=== PATIENT | male | born 1945 ===

== ENCOUNTER 2019-01-14 10:10 | Inpatient (IN) | payer MEDICARE, BC ==
[~2019-01-14] VITALS: Ht 188 cm; Wt 110.8 kg
[2019-01-14] MEDS ORDERED: ASPI81TA50 PO (11:29)
[2019-01-14] MEDS ORDERED: METF500T16 PO (11:29)
[2019-01-14] MEDS ORDERED: HYDR10TA PO (11:29)
[2019-01-14] MEDS ORDERED: ESCITALOPRAM OX20 MG PO (11:29)
[2019-01-14] MEDS ORDERED: LOPE2TAB27 PO (11:29)
[2019-01-14] MEDS ORDERED: MV M PO (11:29)
[2019-01-14] MEDS ORDERED: TRAZ-86 PO (11:29)
[2019-01-14] MEDS ORDERED: GLIP5TAB10 PO (11:29)
[2019-01-14] MEDS ORDERED: CEPH500T PO (11:29)
[2019-01-14] MEDS ORDERED: MUPI15CR8 TP (11:29)
[2019-01-14] MEDS ORDERED: ATOR40TA59 PO (11:29)
[2019-01-14] MEDS ORDERED: HYDR2TAB31 PO (11:29)
[2019-01-14] MEDS ORDERED: QUET25TA5 PO ×2 (11:29→14:26)
[2019-01-14 14:20] VITALS: BP 105/65
[2019-01-14] MEDS ORDERED: CLON0.5T4 PO (14:26)
[2019-01-14] MEDS ORDERED: MAG HYDROX/AL HYDROX/SIMETH 30 ML ORAL.SUSP PO PRN (14:30)
[2019-01-14] MEDS ORDERED: ACETAMINOPHEN 325 MG TABLET PO PRN (14:30)
[2019-01-14] MEDS ORDERED: MAGNESIUM HYDROXIDE 2,400 MG/30 ML ORAL.SUSP. PO PRN (14:30)
[2019-01-14] MEDS ORDERED: QUEtiapine 25 MG TABLET. PO PRN (14:30)
[2019-01-14] MEDS ORDERED: HYDROmorphone 2 MG TABLET PO PRN (14:30)
[2019-01-14] MEDS ORDERED: METHYL SALICYLATE/MENTHOL TOPICAL OINTMENT 57GM TUBE. TP PRN (14:30)
[2019-01-14 15:43] VITALS: BP 100/62
[2019-01-14] MEDS: metFORMIN 500 MG TABLET PO SCH (17:00)
[2019-01-14] MEDS: glipiZIDE 5 MG TABLET PO SCH (17:00)
[2019-01-14] MEDS: CEPHALEXIN 250 MG CAPSULE PO SCH ×2 (17:00→21:10)
[2019-01-14 19:29] LABS: BASO % 0 % (0-3); EOS % 0 % (0-3); HEMATOCRIT 31.2 % (39.0-53.0); HEMOGLOBIN 10.1 g/dL (13.0-17.5); LYMPH # 0.3 x10^3/uL (1.0-4.8); LYMPH % 4 % (24-48); MEAN CORPUSCULAR HEMOGLOBIN 30 pg (25-35); MEAN CORPUSCULAR HGB CONC 32 g/dL (31-37); MEAN CORPUSCULAR VOLUME 93 fL (79-100); MONO # 0.4 x10^3/uL (0.0-1.1); MONO % 4 % (0-9); NEUT # 8.6 x10^3uL (1.8-7.7); NEUT % 92 % (31-73); PLATELET COUNT 193 x10^3/uL (140-400); RED BLOOD COUNT 3.36 x10^6/uL (4.30-5.70); RED CELL DISTRIBUTION WIDTH 15.7 % (11.5-14.5); WHITE BLOOD COUNT 9.4 x10^3/uL (4.0-11.0)
[2019-01-14 19:43] LABS: ALBUMIN 1.9 g/dL (3.4-5.0); ALBUMIN/GLOBULIN RATIO 0.5 (1.0-1.7); CALCIUM 7.3 mg/dL (8.5-10.1); CREATININE 1.1 mg/dL (0.7-1.3); GFR 65.8; MAGNESIUM 1.2 mg/dL (1.8-2.4); TOTAL BILIRUBIN 0.5 mg/dL (0.2-1.0); TOTAL PROTEIN 5.6 g/dL (6.4-8.2)
[2019-01-14] MEDS: ATORVASTATIN CALCIUM 20 MG TABLET PO SCH (21:10)
[2019-01-14] MEDS: LOPERAMIDE 2 MG CAPSULE PO SCH (21:10)
[2019-01-14] MEDS: QUEtiapine 25 MG TABLET. PO SCH (21:10)
[2019-01-14] MEDS: traZODone 100 MG TABLET. PO SCH (21:10)
[2019-01-15] MEDS: glipiZIDE 5 MG TABLET PO SCH ×2 (08:55→17:00)
[2019-01-15] MEDS: CEPHALEXIN 250 MG CAPSULE PO SCH ×4 (08:55→20:00)
[2019-01-15] MEDS: metFORMIN 500 MG TABLET PO SCH ×2 (08:55→17:00)
[2019-01-15] MEDS: LOPERAMIDE 2 MG CAPSULE PO SCH ×2 (08:55→20:01)
[2019-01-15] MEDS: MUPIROCIN 2% TOPICAL OINTMENT 22GM TUBE. TP SCH (08:56)
[2019-01-15] MEDS: HYDROCORTISONE 10 MG TABLET PO SCH (08:56)
[2019-01-15] MEDS: ASPIRIN ENTERIC COATED 81 MG TABLET.DR. PO SCH (08:58)
[2019-01-15] MEDS: LACTOBACILLUS RHAMNOSUS GG 1 CAPSULE. PO SCH ×2 (08:58→20:01)
[2019-01-15] MEDS: clonazePAM 0.5 MG TABLET PO SCH (08:58)
[2019-01-15] MEDS: MULTIVITAMIN with MINERAL TABLET. PO SCH (08:58)
[2019-01-15] MEDS: CITALOPRAM 20 MG TABLET. PO SCH (08:59)
[2019-01-15 10:20] LABS: THYROID STIM HORMONE (TSH) 1.839 uIU/mL (0.358-3.740)
[2019-01-15 12:10] LABS: THYROXINE 5.4 ug/dL (4.5-12.0)
[2019-01-15 16:06] VITALS: BP 108/74
[2019-01-15] MEDS: traZODone 100 MG TABLET. PO SCH (20:01)
[2019-01-15] MEDS: MAGNESIUM OXIDE 400 MG TABLET PO SCH (20:01)
[2019-01-15] MEDS: ATORVASTATIN CALCIUM 20 MG TABLET PO SCH (20:01)
[2019-01-15] MEDS: QUEtiapine 25 MG TABLET. PO SCH (20:01)
--- NOTE | 2019-01-15 21:41 | PDOC ---
Exam Note: Coy Note: Please also refer to the separate dictated note~for this date of service dictated separately. Discussed the patient with Nursing staff reviewed the chart.~Reviewed interim history and current functioning. Reviewed vital signs,~Labs/ Radiology~and current medications noted below. Continue current treatment with the changes noted in the dictated addendum note Assessment: Vital Signs/I&O: Vital Signs Date Time Temp Pulse Resp B/P (MAP) Pulse Ox O2 Delivery O2 Flow Rate FiO2 01/15/19 16:06 97.0 60 18 108/74 (85) 97 I & O 01/14/19 01/14/19 01/15/19 15:00 23:00 07:00 Intake Total 240 ml 240 ml Balance 240 ml 240 ml Labs: Laboratory Tests Test 01/15/19 07:45 01/15/19 12:26 01/15/19 17:59 01/15/19 20:04 Glucose (Fingerstick) 75 mg/dL (70-99) 91 mg/dL (70-99) 119 mg/dL (70-99) H 87 mg/dL (70-99) Current Medications: Meds: Current Medications Medications (Trade) Dose Ordered Sig/Sarai Route PRN Reason Start Time Stop Time Status Last Admin Dose Admin Aspirin (Aspirin Enteric Coated) 81 mg DAILY PO 01/15/19 09:00 01/15/19 08:58 Hydrocortisone (Cortef) 15 mg DAILY PO 01/15/19 09:00 01/15/19 08:56 Citalopram Hydrobromide (CeleXA) 40 mg DAILY PO 01/15/19 09:00 01/15/19 08:59 Mupirocin (Bactroban) 1 amina DAILY TP 01/15/19 09:00 01/15/19 08:56 Multivitamins/ Calcium (Thera-M Plus) 1 tab DAILY PO 01/15/19 09:00 01/15/19 08:58 Clonazepam (KlonoPIN) 0.5 mg DAILY PO 01/15/19 09:00 01/15/19 08:58 Lactobacillus Rhamnosus (Culturelle) 1 cap BID PO 01/15/19 09:00 01/15/19 20:01 Magnesium Oxide (Magnesium Oxide) 400 mg TID PO 01/15/19 21:00 01/15/19 20:01 I have reviewed the current psychotropics carefully including drug interactions. Risk benefit ratio favors no change other than as noted in my dictated progress note. Diagnosis: Problems: (1) Anxiety disorder (2) Dementia, vascular, with depression (3) Dementia, vascular, with delusions (4) Dementia in Alzheimer's disease with depression (5) Dementia in Alzheimer's disease with delusions (6) Impulse control disorder SERGIO GRISSOM MD Jan 15, 2019 21:41
[2019-01-16 03:06] LABS: HEMOGLOBIN A1C 5.4 % (4.8-5.6)
[2019-01-16 05:49] VITALS: BP 113/61
[2019-01-16] MEDS: metFORMIN 500 MG TABLET PO SCH (08:11)
[2019-01-16] MEDS: CITALOPRAM 20 MG TABLET. PO SCH (08:11)
[2019-01-16] MEDS: ASPIRIN ENTERIC COATED 81 MG TABLET.DR. PO SCH (08:11)
[2019-01-16] MEDS: glipiZIDE 5 MG TABLET PO SCH (08:11)
[2019-01-16] MEDS: MULTIVITAMIN with MINERAL TABLET. PO SCH (08:12)
[2019-01-16] MEDS: CEPHALEXIN 250 MG CAPSULE PO SCH ×2 (08:12→13:00)
[2019-01-16] MEDS: MAGNESIUM OXIDE 400 MG TABLET PO SCH ×2 (08:12→14:00)
[2019-01-16] MEDS: LACTOBACILLUS RHAMNOSUS GG 1 CAPSULE. PO SCH (08:12)
[2019-01-16] MEDS: LOPERAMIDE 2 MG CAPSULE PO SCH (08:12)
[2019-01-16] MEDS: HYDROCORTISONE 10 MG TABLET PO SCH (08:12)
[2019-01-16] MEDS: clonazePAM 0.5 MG TABLET PO SCH (08:15)
[2019-01-16] MEDS: MUPIROCIN 2% TOPICAL OINTMENT 22GM TUBE. TP SCH (09:00)
--- NOTE | 2019-01-16 11:02 | HP ---
ADMIT DATE: 01/14/2019 PSYCHIATRIC ADMISSION HISTORY/EVALUATION This late entry 01/14/2019 covers the elements not covered in my initial note. I met with the patient in the evening of 01/16/2019 shortly after he arrived on the unit. IDENTIFYING DATA: The patient came from the [facility] referred by Dr. Braden Mckeon, his primary care physician. On account of refusing medications, throwing medications, combative with cares, yelling out, agitated, tearful, depressed, having significant weight loss, refusing to eat. He had been on the Inpatient Unit at [facility] since 01/11/2019 prior to which he was living at home and home healthcare was providing services for him. He was being combative with cares, resistive to cares, yelling at all times, has a history of dementia with progressive worsening, agitated, and weepy. The yelling was almost consistent and persistent. He had failed outpatient psychiatric interventions with his neurologist, Dr. Neri Murphy and primary care physician, Dr. Braden Mckeon. Changes had been attempted in his psychotropics, Klonopin added for anxiety. He had a psychiatric consultation at [facility] with a recommendation of inpatient psychiatric stabilization on the Geriatric Psychiatry Unit. The patient has a history of vascular dementia and urinary tract infection. Rest medical diagnosis as noted below. CHIEF COMPLAINT: "I just came here a few hours back." This was accurate. HISTORY OF PRESENT ILLNESS: The patient has a history of dementia, vascular and worsening symptoms of depression. He has appeared hopeless, helpless, worthless, agitated, paranoid, and psychotic with sleep and appetite changes as noted. PAST PSYCHIATRIC HISTORY: As above. MEDICAL HISTORY: Gastric bypass in 2011, type 2 diabetes mellitus, hypertension, hyperlipidemia, adrenal insufficiency, coronary artery bypass graft, coronary artery disease, hemicolectomy in 2000 due to cancer, testicular cancer at 63, corneal transplant, anemia, peripheral vascular disease. Per nursing report, he has wounds and abrasions all over his body. Accu-Cheks, before meals and at bedtime. DIET: ADA. CODE STATUS: Full code. ALLERGIES: CODEINE, HYDROCODONE, OXYCODONE. Meds crushed in vanilla pudding, ambulates in wheelchair. UA was positive at [facility], treated on Keflex for 3 days. CURRENT PSYCHOTROPICS: Seroquel 25 mg q. 6 hours p.r.n. psychosis, agitation, Lexapro 20 mg a day, trazodone 100 mg at bedtime, Klonopin 0.5 mg daily, Seroquel 25 mg at bedtime. FAMILY HISTORY: Noncontributory. SOCIAL HISTORY: No history of alcohol, drug abuse, physical, sexual, or elder abuse. He is not known to be a perpetrator. REACTION TO HOSPITALIZATION: The patient accepting of it. ASSETS: Supportive family. He ambulates in a wheelchair. MENTAL STATUS EXAMINATION: The patient was seen individually shortly after he arrived on the unit. He is oriented to himself and situation, unaware of the year, president. Insight, judgment, recent and remote memory, attention, concentration, fund of knowledge poor, consistent with his diagnosis. IMPRESSION: Major neurocognitive disorder, probably vascular with delusion, depression, behavioral disturbance, major depressive disorder; anxiety disorder, unspecified; impulse control disorder, status post urinary tract infection. Rest as above. PLAN: Admit to Geropsychiat[facility] Unit at [facility]. I will see the patient daily individually from a psychiatric standpoint. Medical followup with Dr. Del Rosario. Continue the patient on his current psychotropics. Observe baseline, get records from [facility]. Make further adjustments as clinically indicated. ESTIMATED LENGTH OF STAY: 10-12 days. DISPOSITION: Plan back to home with home health services or perhaps he may need alf placement. MAN Brian GRISSOM MD DR: KANDY/vijaya JOB#: [id number] / [id number]
--- NOTE | 2019-01-16 13:02 | CONS ---
DATE OF CONSULTATION: 01/15/2019 REASON FOR CONSULTATION: Medical management. HISTORY OF PRESENT ILLNESS: The patient is a 73-year-old male patient who was [facility] on account of refusing medication, throwing medication, combative with cares, yelling out, agitated and tearful, all this with major neurocognitive disorder, vascular dementia. He is here for inpatient psychiatric stabilization. Medically, the patient has numerous medical problems including type 2 diabetes mellitus, hypertension, hyperlipidemia, renal insufficiency, coronary artery disease, anemia, and peripheral vascular disease. He also has a history of testicular cancer and colon cancer. PAST SURGICAL HISTORY: Significant for gastric bypass surgery, coronary artery bypass surgery, hemicolectomy, corneal transplant. PAST PSYCHIATRIC HISTORY: Significant for dementia. ALLERGIES: He is allergic to CODEINE, HYDROCODONE and OXYCODONE. MEDICATIONS: He is currently on following medications: He is on cephalexin 500 mg 4 times a day for UTI, atorvastatin calcium 60 mg at bedtime, aspirin 81 mg once a day, hydromorphone 2 mg every 4 hours as needed, clonazepam 0.5 mg daily, escitalopram oxalate 20 mg once a day, trazodone 100 mg at bedtime. Quetiapine fumarate 25 mg every 6 hours and quetiapine fumarate 25 mg at bedtime scheduled. Loperamide 2 mg twice a day, hydrocortisone 50 mg daily, metformin 500 mg twice a day with meals, glipizide 5 mg twice a day, Bactroban ointment applied topically daily to skin lesions. He has multivitamin with minerals 1 capsule once a day. FAMILY HISTORY: Noncontributory. SOCIAL HISTORY: He lives with his . He does not smoke or drink alcohol. PHYSICAL EXAMINATION: GENERAL: When I examined him, the patient looked pale, extremely cachectic, but no jaundice, cyanosis or thyromegaly. No jugular venous distention. No limb edema. VITAL SIGNS: Her heart rate was 60, blood pressure was 108/74, temperature was 97, respiratory rate was 18 and oxygen saturation was 97% on room air. HEAD, EYES, EARS, NOSE AND THROAT: Showed normocephalic, atraumatic. NECK: Supple. HEART: Showed normal first and second heart sounds. No gallop or murmur. CHEST: Clear to auscultation. No crepitation or rhonchi. ABDOMEN: Scaphoid, soft, nontender. NEUROLOGIC: He was awake, alert, responding appropriately. He has some form of ____. EXTREMITIES: He moves his upper extremities to a slightly greater extent than his lower extremities. He is mostly bedbound, chair bound. He has a Mu lift. He is practically quadriplegic. He has multiple skin lesions on different parts of the body on his back, his neck, around the gluteal area and both lower extremities. LABORATORY DATA: His lab work showed a white cell count 9400, hemoglobin 10, hematocrit 31, MCV 93 and platelet count of 193,000 with normal manual differential. His chemistry showed serum sodium of 141, potassium 4, chloride 102, bicarbonate 29, anion gap of 10, BUN 9, creatinine 1.1. Estimated GFR was 66 mL per minute, his glucose 170, calcium was 7.3, magnesium was 1.2. His total bilirubin was normal at 0.5. AST was slightly elevated. ALT and alkaline phosphatase were normal. Total protein was 5.6, albumin was 1.9. Serum triglycerides were 77, total cholesterol was 103, LDL cholesterol 39, VLDL was 15, HDL was 49, the ratio was 2. His TSH, total T4 and total T3 are within normal range. His serum iron, TIBC and iron saturation are consistent with anemia of chronic disease. In summary, this is a 73-year-old male patient who was admitted on account of refusing medication, throwing medication, combative with cares, yelling out, agitated and tearful, all this in a background of major neurocognitive disorder with vascular dementia. He has a multitude of medical problems including type 2 diabetes, hypertension, hyperlipidemia, coronary artery disease, adrenal insufficiency, anemia, and peripheral vascular disease. His lab work showed that he has severe hypomagnesemia with serum magnesium was only 1.2. Severe protein-calorie malnutrition, his serum albumin is only 1.9 mg/dL. He has normochromic normocytic anemia. The patient has functional quadriplegia. He has a Mu lift. He is extremely cachectic. His body mass index only 21 kilograms square meter. Multiple skin lesions. My plan is to replenish his magnesium, otherwise from a medical point of view ____ to be stable. In fact, his serum sodium is normal, potassium is 4, seems to be replenish adequately from the steroid point of view. I will follow all his lab works that are still pending at the time of this dictation and make any necessary recommendation. Thank you, Dr. Miller for allowing me to participate in the care of this patient. JENSEN LUCAS MD DR: HEATHER/vijaya JOB#: [id number] / [id number]
[2019-01-16] MEDS ORDERED: ACET325T21 PO (14:49)
[2019-01-16] MEDS ORDERED: CITA40TA12 PO (14:49)
[2019-01-16] MEDS ORDERED: LACT1CAP19 PO (14:50)
[2019-01-16] MEDS ORDERED: MAG-95 PO (14:51)
[2019-01-16] MEDS ORDERED: MAGN2400 PO (14:52)
[2019-01-16] MEDS ORDERED: METH28OI2 TOP (14:53)
--- NOTE | 2019-01-16 20:20 | PDOC ---
Exam Note: Coy Note: Please also refer to the separate dictated note~for this date of service dictated separately.~Patient seen individually. Discussed the patient with Nursing staff reviewed the chart.~Reviewed interim history and current functioning. Reviewed vital signs,~Labs/ Radiology~and current medications noted below. Continue current treatment with the changes noted in the dictated addendum note Assessment: Vital Signs/I&O: Vital Signs Date Time Temp Pulse Resp B/P (MAP) Pulse Ox O2 Delivery O2 Flow Rate FiO2 01/16/19 05:49 97.5 65 18 113/61 (78) 90 I & O 01/15/19 01/15/19 01/16/19 14:59 22:59 06:59 Intake Total 480 ml 340 ml Balance 480 ml 340 ml Labs: Laboratory Tests Test 01/15/19 21:40 01/16/19 08:02 Clostridioides difficile Toxin B Gene Positive (Negative) *A Glucose (Fingerstick) 78 mg/dL (70-99) Current Medications: Meds: Current Medications Medications (Trade) Dose Ordered Sig/Sarai Route PRN Reason Start Time Stop Time Status Last Admin Dose Admin Magnesium Oxide (Magnesium Oxide) 400 mg TID PO 01/15/19 21:00 01/16/19 16:15 DC 01/16/19 08:12 I have reviewed the current psychotropics carefully including drug interactions. Risk benefit ratio favors no change other than as noted in my dictated progress note. Diagnosis: Problems: (1) Anxiety disorder (2) Dementia, vascular, with depression (3) Dementia, vascular, with delusions (4) Dementia in Alzheimer's disease with depression (5) Dementia in Alzheimer's disease with delusions (6) Impulse control disorder SERGIO GRISSOM MD Jan 16, 2019 20:20
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
--- NOTE | 2019-01-16 23:05 | EKG ---
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
--- NOTE | 2019-01-17 19:30 | DS ---
DATE OF DISCHARGE: 01/16/2019 PSYCHIATRIC PROGRESS NOTE This late entry 01/16/2019 covers elements not covered in my initial note. REASON FOR ADMISSION: Please refer to the admission history for details. Briefly, the patient is a 73-year-old male referred to us from [facility] on account of worsening confusion, agitation, refusing medications, throwing his medications, combative with cares, yelling out, agitated, tearful. He has a history of dementia, Alzheimer's vascular, had failed outpatient psychiatric interventions, referred to inpatient psychiatric stabilization on account of his disruptive, dangerous behaviors unmanageable at a lower level of care. SIGNIFICANT FINDINGS AND CLINICAL COURSE: Following admission, the patient was seen daily individually during this brief hospitalization by myself, medical followup with Dr. Del Rosario. The patient was quite confused. Albumin was low. He has multiple sores. There was a question whether he would be a candidate for hospice care. He was kicking staff, making derogatory statements to staff, grabbed an aide by the breast, quite difficult to control. We were evaluating him baseline and at the time of discharge to the [address] [place] [address] Medical/Surgical floor consequent to Clostridium difficile he was being treated on Seroquel 25 mg q.6 hours p.r.n., Celexa 40 mg a day, trazodone 100 mg at bedtime, Klonopin 0.5 mg daily and Seroquel 25 mg at bedtime. He was previously on Lexapro, which was auto substituted to the Celexa. Prior to discharge on 01/16/2019, ambulation impaired, in wheelchair. No CV, , pulmonary, eye system symptoms on review. He did have a UTI and was on Keflex from [facility]. MENTAL STATUS EXAM: Oriented to himself. Insight, judgment, recent and remote memory, attention, concentration, fund of knowledge poor, consistent with his diagnosis. FINAL DIAGNOSES: Major neurocognitive disorder, Alzheimer, vascular with delusion, depression, behavioral disturbance; anxiety disorder, unspecified; impulse control disorder, unspecified; Clostridium difficile colitis, multiple bruises, urinary tract infection. Rest unchanged from admission. DISCHARGE MEDICATIONS: Please refer to the MRAD. Psychiatric followup on [address] [place] [address]. Medical followup with Dr. Del Rosario. Time for discharge day management greater than 30 minutes. MAN Brian GRISSOM MD DR: Tanvi JOB#: [id number] / [id number]
== END 2019-01-16 16:14 | disposition short-term general hospital (02) | DRG 885 ==
LOC: GEROPSY 13:56
PROVIDERS: ADMIT Psychiatry & Neurology Psychiatry; ATTEND Psychiatry & Neurology Psychiatry
DX: F32.3 Major depressive disorder, single episode, severe with psychotic features (principal); E43 Unspecified severe protein-calorie malnutrition; F01.51 Vascular dementia, unspecified severity, with behavioral disturbance; I25.810 Atherosclerosis of coronary artery bypass graft(s) without angina pectoris; A04.72 Enterocolitis due to Clostridium difficile, not specified as recurrent; E27.40 Unspecified adrenocortical insufficiency; N39.0 Urinary tract infection, site not specified; F02.81 Dementia in other diseases classified elsewhere, unspecified severity, with behavioral disturbance; E11.9 Type 2 diabetes mellitus without complications; F41.9 Anxiety disorder, unspecified; F63.9 Impulse disorder, unspecified; G30.9 Alzheimer's disease, unspecified; I10 Essential (primary) hypertension; D64.9 Anemia, unspecified; E78.5 Hyperlipidemia, unspecified; I25.10 Atherosclerotic heart disease of native coronary artery without angina pectoris; Z85.038 Personal history of other malignant neoplasm of large intestine; Z85.47 Personal history of malignant neoplasm of testis; Z95.1 Presence of aortocoronary bypass graft; Z98.84 Bariatric surgery status; Z79.899 Other long term (current) drug therapy; Z88.8 Allergy status to other drugs, medicaments and biological substances
CPT/HCPCS: 36415; 80053; 80061; 82306; 82607; 82947; 83036; 83540; 83550; 83735; 84436; 84443; 84480; 85025; 86592; 87493; 93005

== ENCOUNTER 2019-01-16 15:55 | Inpatient (IN) | payer MEDICARE, BC ==
[~2019-01-16] VITALS: Ht 182.9 cm; Wt 81.4 kg
[~2019-01-16 15:55] MED LIST: ACET325T21 PO; ASPI81TA50 PO; ATOR40TA59 PO; CEPH500T PO; CITA40TA12 PO; CLON0.5T4 PO; ESCITALOPRAM OX20 MG PO; GLIP5TAB10 PO; HYDR10TA PO; HYDR2TAB31 PO; LACT1CAP19 PO; LOPE2TAB27 PO; MAG-95 PO; MAGN2400 PO; METF500T16 PO; METH28OI2 TOP; MUPI15CR8 TP; MV M PO; QUET25TA5 PO; TRAZ-125 PO
[2019-01-16] MEDS ORDERED: QUEtiapine 25 MG TABLET. PO PRN (16:45)
[2019-01-16] MEDS ORDERED: ACETAMINOPHEN 325 MG TABLET PO PRN (16:45)
[2019-01-16 16:56] VITALS: BP 129/70
[2019-01-16] MEDS ORDERED: METHYL SALICYLATE/MENTHOL TOPICAL OINTMENT 57GM TUBE. TP PRN (17:00)
[2019-01-16 17:10] LABS: HEMATOCRIT 30.9 % (39.0-53.0); RED BLOOD COUNT 3.35 x10^6/uL (4.30-5.70); RED CELL DISTRIBUTION WIDTH 16.1 % (11.5-14.5); WHITE BLOOD COUNT 6.3 x10^3/uL (4.0-11.0)
[2019-01-16 17:23] LABS: ALBUMIN 1.8 g/dL (3.4-5.0); ALBUMIN/GLOBULIN RATIO 0.5 (1.0-1.7); CALCIUM 7.4 mg/dL (8.5-10.1); CREATININE 0.9 mg/dL (0.7-1.3); GFR 82.9; MAGNESIUM 1.3 mg/dL (1.8-2.4); POTASSIUM 3.6 mmol/L (3.5-5.1); TOTAL BILIRUBIN 0.4 mg/dL (0.2-1.0); TOTAL PROTEIN 5.3 g/dL (6.4-8.2)
--- NOTE | 2019-01-16 17:27 | NUR ---
NURSING NOTE ADMIT PT ADMIT TO ROOM 105 FROM [facility] FOR DX OF CDIFF. REPORT FROM [facility]. PT HAS WOUNDS ON COCCYX AND BACK PHOTOGRAPHED IN CHART. PT HAS VARIOUS BRUISING AND SCRATCHES THROUGHOUT AT DIFFERENT STAGES OF HEALING. PT HAS BEEN COMBATIVE UPON ARRIVAL. UNABLE TO ASSESS HEART AND LUNG SOUNDS AT THIS TIME. PT SETTLED IN ROOM. DR LUCAS REVIEWED PT AND PLAN. WILL CONTINUE TO MONITOR. [facility] ALTAMIRANO.
[2019-01-16] MEDS: glipiZIDE 5 MG TABLET PO SCH (17:51)
[2019-01-16] MEDS: CEPHALEXIN 250 MG CAPSULE PO SCH ×2 (17:52→20:46)
[2019-01-16] MEDS: VANCOMYCIN 125 MG/2.5 ML ORAL SOLUTION. PO SCH ×2 (18:32→20:47)
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
[2019-01-16 20:25] VITALS: BP 133/78
[2019-01-16] MEDS: LACTOBACILLUS RHAMNOSUS GG 1 CAPSULE. PO SCH (20:46)
[2019-01-16] MEDS: traZODone 100 MG TABLET. PO SCH (20:46)
[2019-01-16] MEDS: QUEtiapine 25 MG TABLET. PO SCH (20:46)
[2019-01-16] MEDS: ATORVASTATIN CALCIUM 20 MG TABLET PO SCH (20:46)
[2019-01-16] MEDS: LOPERAMIDE 2 MG CAPSULE PO SCH (20:46)
[2019-01-16] MEDS: MAGNESIUM OXIDE 400 MG TABLET PO SCH (20:47)
[2019-01-16 22:55] VITALS: BP 123/60
[2019-01-17 05:22] VITALS: BP 124/71
--- NOTE | 2019-01-17 07:00 | NUR ---
Wound Care Wound care consult for buttock and back wound. Pt has reddened abrasion with open area at top of abrasion, cleansed wound and applied hydrocolloid and foam dressing. Recommend to change every 2-3 days. Pt has stage III to buttock, applied A&D ointment due to incontinence. Pt needs P500 bed and heel medix boots. Discussed POC with RN. No other wounds noted at this time. WC will continue to follow for possible changes.
[2019-01-17] MEDS: LOPERAMIDE 2 MG CAPSULE PO SCH ×2 (07:44→21:00)
[2019-01-17] MEDS: clonazePAM 0.5 MG TABLET PO SCH (07:44)
[2019-01-17] MEDS: CITALOPRAM 20 MG TABLET. PO SCH (07:44)
[2019-01-17] MEDS: LACTOBACILLUS RHAMNOSUS GG 1 CAPSULE. PO SCH ×2 (07:44→22:31)
[2019-01-17] MEDS: CEPHALEXIN 250 MG CAPSULE PO SCH ×4 (07:44→22:31)
[2019-01-17] MEDS: MAGNESIUM OXIDE 400 MG TABLET PO SCH ×2 (07:45→22:31)
[2019-01-17] MEDS: glipiZIDE 5 MG TABLET PO SCH ×2 (07:45→16:49)
[2019-01-17] MEDS: ASPIRIN ENTERIC COATED 81 MG TABLET.DR. PO SCH (07:45)
[2019-01-17] MEDS: MULTIVITAMIN with MINERAL TABLET. PO SCH (07:45)
[2019-01-17] MEDS: VANCOMYCIN 125 MG/2.5 ML ORAL SOLUTION. PO SCH ×4 (07:45→22:31)
[2019-01-17] MEDS: HYDROCORTISONE 10 MG TABLET PO SCH (07:48)
[2019-01-17] MEDS: MUPIROCIN 2% TOPICAL OINTMENT 22GM TUBE. TP SCH (09:00)
--- NOTE | 2019-01-17 11:17 | NUR ---
IP: patient tests + for c diff, requires contact + precautions.
[2019-01-17 11:20] VITALS: BP 91/52
[2019-01-17] MEDS ORDERED: IV NORMAL SALINE 1,000ML 1,000 ML IV SCH (11:30)
[2019-01-17] MEDS ORDERED: MAGNESIUM SULFATE 2GM 50 ML IV ONE (11:30)
[2019-01-17] MEDS: IV NORMAL SALINE 1,000ML 1,000 ML IV SCH (11:33)
--- NOTE | 2019-01-17 11:56 | PN ---
DATE: 01/17/2019 SUBJECTIVE: The patient was transferred yesterday from [facility] on account of having diarrhea and was tested positive for Clostridium difficile toxins. He is in isolation. According to nursing staff, he did not have any bowel movement today. We did start him yesterday on vancomycin 125 mg 4 times a day. He has been more cooperative and compliant with care and medication. Yesterday, he was extremely combative. PHYSICAL EXAMINATION: GENERAL: When I examined him today, he looked pale, but no jaundice, cyanosis or thyromegaly. No jugular venous distention. No limb edema. VITAL SIGNS: His heart rate was 87, blood pressure was 124/71, temperature was 97.7, respiratory rate was 18 and oxygen saturation was 96% on room air. HEAD, EYES, EARS, NOSE AND THROAT: Showed normocephalic, atraumatic. NECK: Supple. HEART: Showed normal first and second heart sounds. No gallop, rub or murmur. CHEST: Clear to auscultation. No crepitation or rhonchi. ABDOMEN: Scaphoid, soft, nontender. No guarding or rigidity. No organomegaly. All hernial orifice intact. Bowel sounds normal. NEUROLOGIC: He was awake, alert, responding appropriately. He is able to move his upper extremities; however, he has functional paraplegia and he is mostly bedbound, chair bound. He has a Mu lift. His intake was 320 and no output was recorded. LABORATORY DATA: His lab work as of yesterday showed a serum sodium 140, potassium 3.6, chloride 105, bicarbonate 29, anion gap of 6, BUN 7, creatinine was 0.9, estimated GFR was 83 mL per minute. His glucose was 130, calcium was 7.4, magnesium was 1.3. Total bilirubin, AST, ALT, alkaline phosphatase were normal. Total protein was 5.3, albumin was 1.8. His white cell count was 6300, hemoglobin 10, hematocrit 30, MCV 92, and platelet count 220,000. ASSESSMENT: 1. Recurrent episode of loose bowel movement tested positive for Clostridium difficile toxin. 2. Other medical problems include type 2 diabetes mellitus. 3. Hypertension. 4. Hyperlipidemia. 5. Chronic renal insufficiency. 6. Coronary artery disease. 7. Anemia. 8. Peripheral vascular disease. 9. History of testicular and colon cancer. 10. Severe protein-calorie malnutrition with serum albumin was only 1.8 g/dL. 11. Severe hypomagnesemia with serum magnesium is only 1.3. PLAN: To continue obviously with vancomycin and all other medications continue with. I will replenish his magnesium and order was brought for magnesium sulfate 2 grams IV and continue with magnesium oxide. Continue with vancomycin 125 mg 4 times a day for C. diff colitis. We will start him on SCDs for DVT prophylaxis as he is mostly bedbound, chair bound and we will also consult Dr. Miller to follow the patient and adjust his psychotropic medication. JENSEN LUCAS MD DR: HEATHER/vijaya JOB#: [id number] / [id number]
--- NOTE | 2019-01-17 13:45 | NUR ---
LIGIA met with pt and pt to discuss the potential for a Hospice referral as pt labs are not well. Pt , in previous conversations, mentioned that they did a hospice consult and was told pt did not meet the criteria. LIGIA would like to send a referral for reconsideration and received permission from pt . Pt reports that the nurse is Terry, but could not remember the lady's name that did the hospice consult. LIGIA will plan to contact them and see what could be done. LIGIA also let pt know that pt would not be in treatment team as pt is on the medical floor and not on [facility]. Addendum: 01/18/19 at 1029 by ALLY STRONG The timing on this note is incorrect. LIGIA met with pt at 1400 after finding out she was in pt room on .
--- NOTE | 2019-01-17 13:47 | NUR ---
SW left a message with pt to contact SW re: the potential to have Hospice come out and assess pt for care. SW will attempt to contact pt , Lisa, back at a later date.
[2019-01-17 16:46] VITALS: BP 112/65
[2019-01-17 19:10] VITALS: BP 103/60
--- NOTE | 2019-01-17 20:45 | PDOC ---
Exam Note: Coy Note: Please also refer to the separate dictated note~for this date of service dictated separately.~Patient seen individually. Discussed the patient with Nursing staff reviewed the chart.~Reviewed interim history and current functioning. Reviewed vital signs,~Labs/ Radiology~and current medications noted below. Continue current treatment with the changes noted in the dictated addendum note Assessment: Vital Signs/I&O: Vital Signs Date Time Temp Pulse Resp B/P (MAP) Pulse Ox O2 Delivery O2 Flow Rate FiO2 01/17/19 20:20 Room Air 01/17/19 19:10 97.8 80 20 103/60 (74) 100 I & O 01/16/19 01/16/19 01/17/19 15:00 23:00 07:00 Intake Total 240 ml 80 ml Balance 240 ml 80 ml Current Medications: Meds: Current Medications Medications (Trade) Dose Ordered Sig/Sarai Route PRN Reason Start Time Stop Time Status Last Admin Dose Admin Aspirin (Aspirin Enteric Coated) 81 mg DAILY PO 01/17/19 09:00 01/17/19 07:45 Clonazepam (KlonoPIN) 0.5 mg DAILY PO 01/17/19 09:00 01/17/19 07:44 Hydrocortisone (Cortef) 15 mg DAILY PO 01/17/19 09:00 01/17/19 07:48 Lactobacillus Rhamnosus (Culturelle) 1 cap BID PO 01/16/19 21:00 01/17/19 07:44 Quetiapine Fumarate (SEROquel) 25 mg HS PO 01/16/19 21:00 01/16/19 20:46 Trazodone HCl (Desyrel) 100 mg HS PO 01/16/19 21:00 01/16/19 20:46 Atorvastatin Calcium (Lipitor) 60 mg QHS PO 01/16/19 21:00 01/16/19 20:46 Citalopram Hydrobromide (CeleXA) 40 mg DAILY PO 01/17/19 09:00 01/17/19 07:44 Loperamide HCl (Imodium) 2 mg BID PO 01/16/19 21:00 01/17/19 07:44 Multivitamins/ Calcium (Thera-M Plus) 1 tab DAILY PO 01/17/19 09:00 01/17/19 07:45 Magnesium Oxide (Magnesium Oxide) 400 mg BID PO 01/16/19 21:00 01/18/19 09:01 01/17/19 07:45 Magnesium Sulfate 50 ml @ 25 mls/hr 1X ONCE IV 01/17/19 11:30 01/17/19 13:29 DC 01/17/19 11:33 Sodium Chloride 1,000 ml @ 75 mls/hr [id number] IV 01/17/19 11:30 01/17/19 11:33 I have reviewed the current psychotropics carefully including drug interactions. Risk benefit ratio favors no change other than as noted in my dictated progress note. Diagnosis: Problems: (1) Anxiety disorder (2) Dementia, vascular, with depression (3) Dementia, vascular, with delusions (4) Dementia in Alzheimer's disease with depression (5) Dementia in Alzheimer's disease with delusions (6) Impulse control disorder SERGIO GRISSOM MD Jan 17, 2019 20:45
[2019-01-17] MEDS: QUEtiapine 25 MG TABLET. PO SCH (22:31)
[2019-01-17] MEDS: traZODone 100 MG TABLET. PO SCH (22:31)
[2019-01-17] MEDS: ATORVASTATIN CALCIUM 20 MG TABLET PO SCH (22:31)
[2019-01-17 23:59] VITALS: BP 106/64
[2019-01-18] MEDS: IV NORMAL SALINE 1,000ML 1,000 ML IV SCH ×2 (01:23→14:01)
[2019-01-18] MEDS: VANCOMYCIN 125 MG/2.5 ML ORAL SOLUTION. PO SCH ×4 (08:10→22:03)
[2019-01-18] MEDS: MULTIVITAMIN with MINERAL TABLET. PO SCH (08:10)
[2019-01-18] MEDS: LACTOBACILLUS RHAMNOSUS GG 1 CAPSULE. PO SCH ×2 (08:10→22:04)
[2019-01-18] MEDS: LOPERAMIDE 2 MG CAPSULE PO SCH ×2 (08:11→21:00)
[2019-01-18] MEDS: glipiZIDE 5 MG TABLET PO SCH ×2 (08:11→17:54)
[2019-01-18] MEDS: ASPIRIN ENTERIC COATED 81 MG TABLET.DR. PO SCH (08:11)
[2019-01-18] MEDS: clonazePAM 0.5 MG TABLET PO SCH (08:11)
[2019-01-18] MEDS: CEPHALEXIN 250 MG CAPSULE PO SCH ×4 (08:11→22:04)
[2019-01-18] MEDS: MAGNESIUM OXIDE 400 MG TABLET PO SCH (08:11)
[2019-01-18] MEDS: CITALOPRAM 20 MG TABLET. PO SCH (08:12)
[2019-01-18] MEDS: HYDROCORTISONE 10 MG TABLET PO SCH (08:12)
[2019-01-18] MEDS: MUPIROCIN 2% TOPICAL OINTMENT 22GM TUBE. TP SCH (09:00)
[2019-01-18 09:14] LABS: CALCIUM 7.5 mg/dL (8.5-10.1); CREATININE 0.7 mg/dL (0.7-1.3); GFR 110.9; MAGNESIUM 1.6 mg/dL (1.8-2.4); POTASSIUM 3.5 mmol/L (3.5-5.1)
--- NOTE | 2019-01-18 10:10 | NUR ---
LIGIA spoke with Neeta through [facility], who did the initial consult for pt services. She reported at that time, pt did not meet criteria and she highly doubted that pt would now based off Medicare regulations. SW understood that pt still talked and had some movement ability; however, based off pt labs, his albumin is low and he may qualify. LIGIA was encouraged to send records over to the office and she will have the director look to see if he meets the criteria for this.
[2019-01-18 10:57] VITALS: BP 103/52
[2019-01-18] MEDS: HYDROmorphone 2 MG TABLET PO PRN (14:13)
[2019-01-18 15:30] VITALS: BP 96/51
--- NOTE | 2019-01-18 15:45 | PN ---
DATE: 01/17/2019 This late entry 01/17 covers elements not covered in my initial note. SUBJECTIVE: I met with the patient evening of 01/17 in room 105, [address] [place] [address], [facility], for a psychiatric consult/followup requested by Dr. Del Rosario after the patient was transferred from the [facility] from under my care to [address] [place] [address] Medical/Surgical floor after he developed C. diff colitis on the Geriatric Psychiatry Unit. While on [address] [place] [address], he has had episodes of irritability, mood lability more so during cares, less so at other times and I have been asked to consult to follow him from a psychiatric standpoint. Information from initial evaluation and assessments from the [facility] will not be repeated here. Per nursing staff, the patient is doing better, but gets irritable with cares. Sleep and appetite are fair. He remains confused. REVIEW OF SYSTEMS: Ambulation impaired. No CV, , pulmonary, eye system symptoms on review. Reliability poor. MENTAL STATUS EXAM: Oriented to himself. Insight, judgment, recent and remote memory, attention, concentration, fund of knowledge poor consistent with his diagnosis. LABORATORY DATA: Reviewed. IMPRESSION: Major neurocognitive disorder, Alzheimer, vascular with delusion, depression, behavioral disturbance; anxiety disorder, unspecified; impulse control disorder, unspecified. Rest unchanged. PLAN: Start Zyprexa Zydis 2.5 mg q. 2 hours p.r.n. psychosis, agitation, max 10 mg in 24 hours, specifically during cares to help with irritability, mood lability. Rest unchanged for now. MAN Brian GRISSOM MD DR: KANDY/vijaya JOB#: [id number] / [id number]
[2019-01-18 18:54] VITALS: BP 88/51
--- NOTE | 2019-01-18 19:34 | PN ---
DATE: 01/18/2019 SUBJECTIVE: The patient is resting, slightly propped up in bed, in no apparent distress. On questioning him, he denied any complaint. He apparently has one small bowel movement. PHYSICAL EXAMINATION: GENERAL: When I examined him, he looked pale, cachectic, but no jaundice, cyanosis or thyromegaly. No jugular venous distension. No lower limb edema. VITAL SIGNS: His heart rate was 75, blood pressure was 103/57, temperature was 98.6, respiratory rate 20, and oxygen saturation was 96% on room air. HEAD, EYES, EARS, NOSE AND THROAT: Showed normocephalic, atraumatic. NECK: Supple. HEART: Showed normal first and second heart sounds. No gallop or murmur. CHEST: Clear to auscultation. No crepitation or rhonchi. ABDOMEN: Scaphoid, soft, nontender. NEUROLOGIC: He was awake, alert, responding appropriately. All cranial nerves are intact. He moves upper extremities without difficulty, has functional paraplegia. He is mostly bedbound, chair bound. He has a Mu lift. His intake over the last 24 hours was 1500, no output was recorded. LABORATORY DATA: His lab work this morning showed a serum sodium 141, potassium 3.5, chloride 106, bicarbonate 30, anion gap of 5, BUN 4, creatinine 0.7, estimated GFR was 110 mL per minute, his glucose 113, calcium was 7.5, magnesium was 1.6. ASSESSMENT: 1. Recurrent episodes of loose bowel movement, tested positive Clostridium difficile toxin for which he is now on oral vancomycin. 2. Type 2 diabetes mellitus. 3. Hypertension. 4. Hyperlipidemia. 5. Chronic renal insufficiency. 6. Coronary artery disease. 7. Anemia. 8. Peripheral vascular disease. 9. History of testicular and colon cancer. 10. Severe protein-calorie malnutrition, serum albumin is only 1.8 mg/dL. 11. Severe hypomagnesemia with serum magnesium is only 1.3 g/dL. PLAN: To continue with vancomycin and all other medication. Continue with magnesium supplement. Continue with DVT prophylaxis with SCD. Given the multitude of medical problems, he has hospice comfort and hospice care is very appropriate for him. JENSEN LUCAS MD DR: HEATHER/vijaya JOB#: [id number] / [id number]
--- NOTE | 2019-01-18 20:33 | PDOC ---
Exam Note: Coy Note: Please also refer to the separate dictated note~for this date of service dictated separately.~Patient seen individually. Discussed the patient with Nursing staff reviewed the chart.~Reviewed interim history and current functioning. Reviewed vital signs,~Labs/ Radiology~and current medications noted below. Continue current treatment with the changes noted in the dictated addendum note Assessment: Vital Signs/I&O: Vital Signs Date Time Temp Pulse Resp B/P (MAP) Pulse Ox O2 Delivery O2 Flow Rate FiO2 01/18/19 18:54 98.0 66 20 88/51 (63) 95 Room Air I & O 01/17/19 01/17/19 01/18/19 15:00 23:00 07:00 Intake Total 200 ml 360 ml 980.41 ml Balance 200 ml 360 ml 980.41 ml Labs: Laboratory Tests Test 01/18/19 08:52 Sodium Level 141 mmol/L (136-145) Potassium Level 3.5 mmol/L (3.5-5.1) Chloride Level 106 mmol/L (98-107) Carbon Dioxide Level 30 mmol/L (21-32) Anion Gap 5 (6-14) L Blood Urea Nitrogen 4 mg/dL (8-26) L Creatinine 0.7 mg/dL (0.7-1.3) Estimated GFR (Cockcroft-Gault) 110.9 Glucose Level 113 mg/dL (70-99) H Calcium Level 7.5 mg/dL (8.5-10.1) L Magnesium Level 1.6 mg/dL (1.8-2.4) L Current Medications: I have reviewed the current psychotropics carefully including drug interactions. Risk benefit ratio favors no change other than as noted in my dictated progress note. Diagnosis: Problems: (1) Anxiety disorder (2) Dementia, vascular, with depression (3) Dementia, vascular, with delusions (4) Dementia in Alzheimer's disease with depression (5) Dementia in Alzheimer's disease with delusions (6) Impulse control disorder SERGIO GRISSOM MD Jan 18, 2019 20:33
[2019-01-18] MEDS: traZODone 100 MG TABLET. PO SCH (22:03)
[2019-01-18] MEDS: ATORVASTATIN CALCIUM 20 MG TABLET PO SCH (22:03)
[2019-01-18] MEDS: QUEtiapine 25 MG TABLET. PO SCH (22:04)
[2019-01-18 23:12] VITALS: BP 105/58
[2019-01-19] MEDS: IV NORMAL SALINE 1,000ML 1,000 ML IV SCH ×2 (04:23→16:44)
[2019-01-19 05:47] VITALS: BP 132/66
[2019-01-19] MEDS: clonazePAM 0.5 MG TABLET PO SCH (08:16)
[2019-01-19] MEDS: CEPHALEXIN 250 MG CAPSULE PO SCH ×4 (08:16→21:08)
[2019-01-19] MEDS: LACTOBACILLUS RHAMNOSUS GG 1 CAPSULE. PO SCH ×2 (08:16→21:08)
[2019-01-19] MEDS: glipiZIDE 5 MG TABLET PO SCH ×2 (08:16→17:48)
[2019-01-19] MEDS: CITALOPRAM 20 MG TABLET. PO SCH (08:16)
[2019-01-19] MEDS: MULTIVITAMIN with MINERAL TABLET. PO SCH (08:16)
[2019-01-19] MEDS: ASPIRIN ENTERIC COATED 81 MG TABLET.DR. PO SCH (08:16)
[2019-01-19] MEDS: HYDROCORTISONE 10 MG TABLET PO SCH (08:17)
[2019-01-19] MEDS: LOPERAMIDE 2 MG CAPSULE PO SCH ×2 (08:17→21:08)
[2019-01-19] MEDS: MUPIROCIN 2% TOPICAL OINTMENT 22GM TUBE. TP SCH (09:00)
[2019-01-19] MEDS: VANCOMYCIN 125 MG/2.5 ML ORAL SOLUTION. PO SCH ×4 (09:02→21:07)
[2019-01-19 14:11] VITALS: BP 96/55
[2019-01-19] MEDS: HYDROmorphone 2 MG TABLET PO PRN (14:13)
[2019-01-19 20:17] VITALS: BP 121/69
--- NOTE | 2019-01-19 20:46 | PDOC ---
Exam Note: Coy Note: Please also refer to the separate dictated note~for this date of service dictated separately.~Patient seen individually. Discussed the patient with Nursing staff reviewed the chart.~Reviewed interim history and current functioning. Reviewed vital signs,~Labs/ Radiology~and current medications noted below. Continue current treatment with the changes noted in the dictated addendum note Assessment: Vital Signs/I&O: Vital Signs Date Time Temp Pulse Resp B/P (MAP) Pulse Ox O2 Delivery O2 Flow Rate FiO2 01/19/19 20:17 97.4 66 20 121/69 (86) 94 Room Air I & O 01/18/19 01/18/19 01/19/19 15:00 23:00 07:00 Intake Total 240 ml 1480 ml 1137.99 ml Balance 240 ml 1480 ml 1137.99 ml Current Medications: I have reviewed the current psychotropics carefully including drug interactions. Risk benefit ratio favors no change other than as noted in my dictated progress note. Diagnosis: Problems: (1) Anxiety disorder (2) Dementia, vascular, with depression (3) Dementia, vascular, with delusions (4) Dementia in Alzheimer's disease with depression (5) Dementia in Alzheimer's disease with delusions (6) Impulse control disorder SERGIO GRISSOM MD Jan 19, 2019 20:46
[2019-01-19] MEDS: traZODone 100 MG TABLET. PO SCH (21:08)
[2019-01-19] MEDS: ATORVASTATIN CALCIUM 20 MG TABLET PO SCH (21:08)
[2019-01-19] MEDS: QUEtiapine 25 MG TABLET. PO SCH (21:09)
[2019-01-20] MEDS: IV NORMAL SALINE 1,000ML 1,000 ML IV SCH ×2 (06:10→21:30)
[2019-01-20] MEDS: ASPIRIN ENTERIC COATED 81 MG TABLET.DR. PO SCH (07:57)
[2019-01-20] MEDS: MULTIVITAMIN with MINERAL TABLET. PO SCH (07:57)
[2019-01-20] MEDS: CEPHALEXIN 250 MG CAPSULE PO SCH (07:57)
[2019-01-20] MEDS: glipiZIDE 5 MG TABLET PO SCH ×2 (07:57→16:55)
[2019-01-20] MEDS: CITALOPRAM 20 MG TABLET. PO SCH (07:57)
[2019-01-20] MEDS: LACTOBACILLUS RHAMNOSUS GG 1 CAPSULE. PO SCH ×2 (07:57→21:29)
[2019-01-20] MEDS: clonazePAM 0.5 MG TABLET PO SCH (07:58)
[2019-01-20] MEDS: HYDROCORTISONE 10 MG TABLET PO SCH (07:58)
[2019-01-20] MEDS: MUPIROCIN 2% TOPICAL OINTMENT 22GM TUBE. TP SCH (07:59)
[2019-01-20] MEDS: VANCOMYCIN 125 MG/2.5 ML ORAL SOLUTION. PO SCH ×4 (07:59→21:29)
[2019-01-20] MEDS: LOPERAMIDE 2 MG CAPSULE PO SCH ×2 (08:00→21:29)
[2019-01-20 10:54] VITALS: BP 101/54
--- NOTE | 2019-01-20 12:16 | PN ---
DATE: 01/18/2019 This late entry 01/18 covers elements not covered in my initial note. SUBJECTIVE: I met with the patient in the evening. Per nursing staff, the patient gets a little restless with cares, but rest of the time he can yell out at times, but redirects. He remains confused. He is being treated for his C. diff and possibly once he is medically stable, he may need to come back to the [facility], but we will reassess at that time. REVIEW OF SYSTEMS: Ambulation impaired. No CV, , pulmonary, eye system symptoms on review. MENTAL STATUS EXAM: Oriented to himself. Insight, judgment, recent and remote memory, attention, concentration, fund of knowledge poor, consistent with his diagnosis mentioned in my initial note. PLAN: No change from initial note. We have added Zyprexa p.r.n. We will continue unchanged. SERGIO GRISSOM MD DR: KANDY/vijaya JOB#: [id number] / [id number]
--- NOTE | 2019-01-20 12:23 | PN ---
DATE: 01/19/2019 This late entry 01/19/2019 covers elements not covered in my initial note. SUBJECTIVE: I met with the patient evening of 01/19/2019. Earlier in the day, discussed with nursing staff about the possibility of patient returning to [facility]. He remains confused, still being medically stabilized for his C. diff colitis, gets a little anxious, restless, especially with cares, but redirects and Zyprexa has been helpful. I met with him in his room. REVIEW OF SYSTEMS: No CV, , Pulmonary, eye system symptoms on review, does complain of tiredness. MENTAL STATUS EXAM: Oriented to himself. Insight, judgment, recent and remote memory, attention, concentration, fund of knowledge poor, consistent with his diagnosis mentioned in my initial note. PLAN: No change from initial note. MAN Brian GRISSOM MD DR: KANDY/vijaya JOB#: [id number] / [id number]
[2019-01-20] MEDS: HYDROmorphone 2 MG TABLET PO PRN ×2 (13:26→16:55)
--- NOTE | 2019-01-20 14:46 | NUR ---
Patient did not have any bowel movement this shift. Last bowel movement was on 01/18/2019, stool was formed, no liquid stools observed at that time.
[2019-01-20 15:09] VITALS: BP 100/53
--- NOTE | 2019-01-20 15:42 | PN ---
DATE: 01/20/2019 SUBJECTIVE: The patient is resting, slightly propped up in bed, in no apparent distress. On questioning him, he denied any complaint. Nursing staff stated that he seemed to be more cooperative and compliant with care and medication. PHYSICAL EXAMINATION: GENERAL: When I examined him, he was pale, cachectic, but no jaundice, cyanosis or thyromegaly. No jugular venous distention. No limb edema. VITAL SIGNS: Her heart rate was 74, blood pressure was 101/54, temperature was 97.9, respiratory rate 20, and oxygen saturation was 96%. HEAD, EYES, EARS, NOSE AND THROAT: Normocephalic, atraumatic. NECK: Supple. HEART: Showed normal first and second heart sounds with no gallop or murmur. CHEST: Clear to auscultation. No crepitation or rhonchi. ABDOMEN: Scaphoid, soft, nontender. NEUROLOGIC: He is awake, alert. All his cranial nerves are intact. He moves his upper extremities to much good extent than lower extremities, has functional paraplegia with multiple skin wounds, for which he is on low air loss mattress. His intake over the last 24 hours was 2600, no output was recorded. LABORATORY DATA: His most recent lab work showed a serum sodium 141, potassium 3.5, chloride 106, bicarbonate 30, anion gap of 5, BUN 4, creatinine 0.7, estimated GFR 110, glucose 113, calcium 7.5, magnesium was 1.6. His hemoglobin 10, hematocrit 30 with normal white cell count and platelets. ASSESSMENT: 1. Clostridium diff colitis for which he is on oral vancomycin. 2. Type 2 diabetes mellitus, reasonably controlled. 3. Hypertension. 4. Hyperlipidemia. 5. Chronic renal insufficiency. 6. Coronary artery disease. 7. Anemia. 8. Peripheral vascular disease. 9. History of testicular and cancer. 10. Severe protein-calorie malnutrition, serum albumin is only 1.8 mg/dL. 11. Severe hypomagnesemia. Serum magnesium is only 1.3 mg/dL. PLAN: To continue with all other medication. Continue with oral vancomycin. Continue to monitor his electrolytes. Continue with DVT prophylaxis. JENSEN LUCAS MD DR: HEATHER/vijaya JOB#: [id number] / [id number]
[2019-01-20 19:40] VITALS: BP 103/59
--- NOTE | 2019-01-20 20:36 | PDOC ---
Exam Note: Coy Note: Please also refer to the separate dictated note~for this date of service dictated separately.~Patient seen individually. Discussed the patient with Nursing staff reviewed the chart.~Reviewed interim history and current functioning. Reviewed vital signs,~Labs/ Radiology~and current medications noted below. Continue current treatment with the changes noted in the dictated addendum note Assessment: Vital Signs/I&O: Vital Signs Date Time Temp Pulse Resp B/P (MAP) Pulse Ox O2 Delivery O2 Flow Rate FiO2 01/20/19 19:40 97.1 76 20 103/59 (74) 95 Room Air I & O 01/19/19 01/19/19 01/20/19 15:00 23:00 07:00 Intake Total 440 ml 480 ml 1745 ml Balance 440 ml 480 ml 1745 ml Current Medications: I have reviewed the current psychotropics carefully including drug interactions. Risk benefit ratio favors no change other than as noted in my dictated progress note. Diagnosis: Problems: (1) C. difficile colitis (2) Severe protein-calorie malnutrition (3) Anxiety disorder (4) Dementia, vascular, with depression (5) Dementia, vascular, with delusions (6) Dementia in Alzheimer's disease with depression (7) Dementia in Alzheimer's disease with delusions (8) Impulse control disorder SERGIO GRISSOM MD Jan 20, 2019 20:36
[2019-01-20] MEDS: ATORVASTATIN CALCIUM 20 MG TABLET PO SCH (21:30)
[2019-01-20] MEDS: QUEtiapine 25 MG TABLET. PO SCH (21:30)
[2019-01-20] MEDS: traZODone 100 MG TABLET. PO SCH (21:30)
[2019-01-20 22:30] LABS: BASO % 1 % (0-3); EOS # 0.1 x10^3/uL (0.0-0.7); EOS % 2 % (0-3); HEMATOCRIT 25.7 % (39.0-53.0); HEMOGLOBIN 8.2 g/dL (13.0-17.5); LYMPH # 0.8 x10^3/uL (1.0-4.8); LYMPH % 16 % (24-48); MEAN CORPUSCULAR HEMOGLOBIN 30 pg (25-35); MEAN CORPUSCULAR HGB CONC 32 g/dL (31-37); MEAN CORPUSCULAR VOLUME 93 fL (79-100); MONO # 0.4 x10^3/uL (0.0-1.1); MONO % 8 % (0-9); NEUT # 3.8 x10^3uL (1.8-7.7); NEUT % 74 % (31-73); PLATELET COUNT 250 x10^3/uL (140-400); RED BLOOD COUNT 2.77 x10^6/uL (4.30-5.70); WHITE BLOOD COUNT 5.2 x10^3/uL (4.0-11.0)
[2019-01-20 22:42] LABS: ALBUMIN 1.5 g/dL (3.4-5.0); ALBUMIN/GLOBULIN RATIO 0.5 (1.0-1.7); CALCIUM 7.4 mg/dL (8.5-10.1); CREATININE 0.6 mg/dL (0.7-1.3); GFR 132.4; TOTAL BILIRUBIN 0.2 mg/dL (0.2-1.0); TOTAL PROTEIN 4.4 g/dL (6.4-8.2)
--- NOTE | 2019-01-20 22:50 | NUR ---
Nurse called me into patient room, patient bp was 74/55, upon assessing IV it was determined to be infiltrated. Put in stat labs, got another IV put in and giving patient a fluid bolus of 500cc. Will reassess bp. Dr. Del Rosario notifed.
[2019-01-20 23:11] VITALS: BP 105/56
[2019-01-21 06:13] LABS: HEMOGLOBIN 8.7 g/dL (13.0-17.5); RED BLOOD COUNT 2.92 x10^6/uL (4.30-5.70); RED CELL DISTRIBUTION WIDTH 16.2 % (11.5-14.5); WHITE BLOOD COUNT 5.7 x10^3/uL (4.0-11.0)
[2019-01-21] MEDS: IV NORMAL SALINE 1,000ML 1,000 ML IV SCH ×2 (06:28→19:57)
[2019-01-21 06:29] VITALS: BP 123/63
[2019-01-21 06:29] LABS: ALBUMIN 1.5 g/dL (3.4-5.0); ALBUMIN/GLOBULIN RATIO 0.5 (1.0-1.7); CALCIUM 7.5 mg/dL (8.5-10.1); CREATININE 0.6 mg/dL (0.7-1.3); GFR 132.4; MAGNESIUM 1.5 mg/dL (1.8-2.4); TOTAL BILIRUBIN 0.3 mg/dL (0.2-1.0); TOTAL PROTEIN 4.6 g/dL (6.4-8.2)
[2019-01-21] MEDS: clonazePAM 0.5 MG TABLET PO SCH (08:57)
[2019-01-21] MEDS: CITALOPRAM 20 MG TABLET. PO SCH (08:57)
[2019-01-21] MEDS: ASPIRIN ENTERIC COATED 81 MG TABLET.DR. PO SCH (08:57)
[2019-01-21] MEDS: MULTIVITAMIN with MINERAL TABLET. PO SCH (08:58)
[2019-01-21] MEDS: LOPERAMIDE 2 MG CAPSULE PO SCH ×2 (08:58→22:27)
[2019-01-21] MEDS: glipiZIDE 5 MG TABLET PO SCH ×2 (08:58→17:10)
[2019-01-21] MEDS: LACTOBACILLUS RHAMNOSUS GG 1 CAPSULE. PO SCH ×2 (08:58→22:27)
[2019-01-21] MEDS: VANCOMYCIN 125 MG/2.5 ML ORAL SOLUTION. PO SCH ×4 (08:58→22:26)
[2019-01-21] MEDS: MUPIROCIN 2% TOPICAL OINTMENT 22GM TUBE. TP SCH (09:00)
[2019-01-21] MEDS: HYDROCORTISONE 10 MG TABLET PO SCH (09:02)
[2019-01-21 10:04] VITALS: BP 94/51
[2019-01-21] MEDS ORDERED: MAGNESIUM SULFATE 2GM 50 ML IV ONE (13:45)
--- NOTE | 2019-01-21 16:50 | NUR ---
Jb is agitated. After telling to leave patient began yelling our "Lisa" over and over again Patient also became tearful when I told him his went home for the evening.
[2019-01-21 19:43] VITALS: BP 100/53
--- NOTE | 2019-01-21 20:08 | PN ---
DATE: SUBJECTIVE: The patient is resting, slightly propped up in bed, in no apparent respiratory distress. He continued to be combative, resistive to care and refusing medication, yelling, calling some nurses names. PHYSICAL EXAMINATION: GENERAL: However, when I saw him this afternoon, he looked well and was clearly in no apparent respiratory distress. He was somewhat cachectic, pale. No jaundice, cyanosis or thyromegaly. No jugular venous distention. No limb edema. VITAL SIGNS: His heart rate was 62, blood pressure was 94/51, temperature was 98.3, respiratory rate 20, and oxygen saturation was 95%. HEAD, EYES, EARS, NOSE AND THROAT: Normocephalic, atraumatic. NECK: Supple. HEART: Showed normal first and second heart sounds with no gallop, rub or murmur. CHEST: Clear to auscultation. No crepitation or rhonchi. ABDOMEN: Distended, soft, nontender. NEUROLOGIC: He was awake, alert, responding appropriately. All cranial nerves intact. He moves upper extremities without difficulty, has functional paraplegia, he is mostly bedbound, chair bound. His intake over the last 24 hours was 2900, no output was recorded. LABORATORY DATA: His lab work this morning showed a serum sodium 143, potassium 4, chloride 109, bicarbonate 29, anion gap of 5, BUN 3, creatinine 0.6, estimated GFR was 132 mL per minute. His glucose was 79, calcium was 7.5, magnesium was 1.5. Total bilirubin, AST, ALT, alkaline phosphatase were normal. Total protein was 4.6, albumin was ____. White cell count was 5700, hemoglobin 8.7, hematocrit 27, MCV 93 and platelet count 255,000. ASSESSMENT: 1. Clostridium difficile colitis diarrhea. No bowel movement reported. 2. Severe protein-calorie malnutrition, serum albumin is only ____ mg/dL. 3. Functional paraplegia. 4. Type 2 diabetes mellitus. 5. Hypertension. 6. Hyperlipidemia. 7. Chronic renal insufficiency. 8. Coronary artery disease. 9. Anemia. 10. Peripheral vascular disease. 11. History of testicular and colon cancer. 12. Severe hypomagnesemia with serum magnesium only 1.5. 13. He has multiple psychiatric disorders including dementia, vascular depression, anxiety disorder and dementia with delusion and impulse control disorder. PLAN: To continue with his current psychotropic medication as they are. Continue with oral vancomycin. We will replenish his magnesium. We will await until Wednesday to decide whether he needs to go upstairs to [facility] or if he was agreeable and he was accepted to go on hospice care. JENSEN LUCAS MD DR: HEATHER/vijaya JOB#: [id number] / [id number]
--- NOTE | 2019-01-21 20:36 | PDOC ---
Exam Note: Coy Note: Please also refer to the separate dictated note~for this date of service dictated separately.~Patient seen individually. Discussed the patient with Nursing staff reviewed the chart.~Reviewed interim history and current functioning. Reviewed vital signs,~Labs/ Radiology~and current medications noted below. Continue current treatment with the changes noted in the dictated addendum note Assessment: Vital Signs/I&O: Vital Signs Date Time Temp Pulse Resp B/P (MAP) Pulse Ox O2 Delivery O2 Flow Rate FiO2 01/21/19 19:43 97.9 79 20 100/53 (69) 92 Room Air I & O 01/20/19 01/20/19 01/21/19 14:59 22:59 06:59 Intake Total 720 ml 1405 ml 3230 ml Balance 720 ml 1405 ml 3230 ml Labs: Laboratory Tests Test 01/20/19 22:20 01/21/19 05:50 White Blood Count 5.2 x10^3/uL (4.0-11.0) 5.7 x10^3/uL (4.0-11.0) Red Blood Count 2.77 x10^6/uL (4.30-5.70) L 2.92 x10^6/uL (4.30-5.70) L Hemoglobin 8.2 g/dL (13.0-17.5) L 8.7 g/dL (13.0-17.5) L Hematocrit 25.7 % (39.0-53.0) L 27.0 % (39.0-53.0) L Mean Corpuscular Volume 93 fL (79-100) 93 fL (79-100) Mean Corpuscular Hemoglobin 30 pg (25-35) 30 pg (25-35) Mean Corpuscular Hemoglobin Concent 32 g/dL (31-37) 32 g/dL (31-37) Red Cell Distribution Width 16.0 % (11.5-14.5) H 16.2 % (11.5-14.5) H Platelet Count 250 x10^3/uL (140-400) 255 x10^3/uL (140-400) Neutrophils (%) (Auto) 74 % (31-73) H Lymphocytes (%) (Auto) 16 % (24-48) L Monocytes (%) (Auto) 8 % (0-9) Eosinophils (%) (Auto) 2 % (0-3) Basophils (%) (Auto) 1 % (0-3) Neutrophils # (Auto) 3.8 x10^3uL (1.8-7.7) Lymphocytes # (Auto) 0.8 x10^3/uL (1.0-4.8) L Monocytes # (Auto) 0.4 x10^3/uL (0.0-1.1) Eosinophils # (Auto) 0.1 x10^3/uL (0.0-0.7) Basophils # (Auto) 0.0 x10^3/uL (0.0-0.2) Sodium Level 141 mmol/L (136-145) 143 mmol/L (136-145) Potassium Level 4.0 mmol/L (3.5-5.1) 4.0 mmol/L (3.5-5.1) Chloride Level 108 mmol/L (98-107) H 109 mmol/L (98-107) H Carbon Dioxide Level 28 mmol/L (21-32) 29 mmol/L (21-32) Anion Gap 5 (6-14) L 5 (6-14) L Blood Urea Nitrogen 5 mg/dL (8-26) L 3 mg/dL (8-26) L Creatinine 0.6 mg/dL (0.7-1.3) L 0.6 mg/dL (0.7-1.3) L Estimated GFR (Cockcroft-Gault) 132.4 132.4 BUN/Creatinine Ratio 8 (6-20) 5 (6-20) L Glucose Level 104 mg/dL (70-99) H 79 mg/dL (70-99) Calcium Level 7.4 mg/dL (8.5-10.1) L 7.5 mg/dL (8.5-10.1) L Total Bilirubin 0.2 mg/dL (0.2-1.0) 0.3 mg/dL (0.2-1.0) Aspartate Amino Transferase (AST) 23 U/L (15-37) 22 U/L (15-37) Alanine Aminotransferase (ALT) 17 U/L (16-63) 18 U/L (16-63) Alkaline Phosphatase 69 U/L (46-116) 70 U/L (46-116) Total Protein 4.4 g/dL (6.4-8.2) L 4.6 g/dL (6.4-8.2) L Albumin 1.5 g/dL (3.4-5.0) L 1.5 g/dL (3.4-5.0) L Albumin/Globulin Ratio 0.5 (1.0-1.7) L 0.5 (1.0-1.7) L Magnesium Level 1.5 mg/dL (1.8-2.4) L Current Medications: Meds: Current Medications Medications (Trade) Dose Ordered Sig/Sarai Route PRN Reason Start Time Stop Time Status Last Admin Dose Admin Magnesium Sulfate 50 ml @ 25 mls/hr 1X ONCE IV 01/21/19 13:45 01/21/19 15:44 DC 01/21/19 14:32 I have reviewed the current psychotropics carefully including drug interactions. Risk benefit ratio favors no change other than as noted in my dictated progress note. Diagnosis: Problems: (1) Severe protein-calorie malnutrition (2) C. difficile colitis (3) Anxiety disorder (4) Dementia, vascular, with depression (5) Dementia, vascular, with delusions (6) Dementia in Alzheimer's disease with depression (7) Dementia in Alzheimer's disease with delusions (8) Impulse control disorder SERGIO GRISSOM MD Jan 21, 2019 20:36
[2019-01-21] MEDS: ATORVASTATIN CALCIUM 20 MG TABLET PO SCH (22:27)
[2019-01-21] MEDS: QUEtiapine 25 MG TABLET. PO SCH (22:27)
[2019-01-21] MEDS: traZODone 100 MG TABLET. PO SCH (22:27)
[2019-01-21 22:32] VITALS: BP 133/73
--- NOTE | 2019-01-21 22:35 | PN ---
DATE: 01/20/2019 PSYCHIATRIC PROGRESS NOTE This late entry 01/20/2019 covers the elements not covered in my initial note. SUBJECTIVE: I met with the patient in the evening of 01/20/2019. Per nursing report, the patient has been more redirectable. He does have pain, which worsens during cares and when he is given something to help with this he does much better. REVIEW OF SYSTEMS: Ambulation impaired, tiredness. No CV, , pulmonary, eye system symptoms on review. MENTAL STATUS EXAM: Oriented to himself. Insight, judgment, recent and remote memory, attention, concentration, fund of knowledge poor, consistent with his diagnosis mentioned in my initial note. PLAN: No change from initial note. MAN Brian GRISSOM MD DR: KANDY/vijaya JOB#: [id number] / [id number]
[2019-01-21 22:36] VITALS: BP 143/76
[2019-01-22 05:28] VITALS: BP 143/83
--- NOTE | 2019-01-22 06:31 | NUR ---
Patient very agitated. trying to pull IV pole onto himself. Zyprexa given per order.
[2019-01-22 07:29] LABS: CALCIUM 7.8 mg/dL (8.5-10.1); CREATININE 0.7 mg/dL (0.7-1.3); GFR 110.9; MAGNESIUM 1.7 mg/dL (1.8-2.4); POTASSIUM 3.9 mmol/L (3.5-5.1)
[2019-01-22] MEDS: VANCOMYCIN 125 MG/2.5 ML ORAL SOLUTION. PO SCH ×4 (09:00→21:02)
[2019-01-22] MEDS: MUPIROCIN 2% TOPICAL OINTMENT 22GM TUBE. TP SCH (09:00)
[2019-01-22] MEDS: IV NORMAL SALINE 1,000ML 1,000 ML IV SCH ×2 (09:38→23:31)
[2019-01-22] MEDS: clonazePAM 0.5 MG TABLET PO SCH (09:38)
[2019-01-22] MEDS: LACTOBACILLUS RHAMNOSUS GG 1 CAPSULE. PO SCH ×2 (09:38→21:03)
[2019-01-22] MEDS: LOPERAMIDE 2 MG CAPSULE PO SCH ×2 (09:38→21:03)
[2019-01-22] MEDS: CITALOPRAM 20 MG TABLET. PO SCH (09:38)
[2019-01-22] MEDS: MULTIVITAMIN with MINERAL TABLET. PO SCH (09:38)
[2019-01-22] MEDS: HYDROCORTISONE 10 MG TABLET PO SCH (09:38)
[2019-01-22] MEDS: glipiZIDE 5 MG TABLET PO SCH ×2 (09:38→17:24)
[2019-01-22] MEDS: ASPIRIN ENTERIC COATED 81 MG TABLET.DR. PO SCH (09:38)
[2019-01-22 10:24] VITALS: BP 105/60
--- NOTE | 2019-01-22 11:05 | PN ---
DATE: 01/22/2019 SUBJECTIVE: The patient is resting, slightly propped up in bed, no apparent distress. On questioning him, he denied any complaint and nursing staff did not voice any concern and stated had an uneventful night. PHYSICAL EXAMINATION: GENERAL: When I examined him, he looked pale, but no jaundice, cyanosis, or thyromegaly. No jugular venous distension. No limb edema. VITAL SIGNS: His heart rate was 81, blood pressure was 143/83, temperature was 97.7, respiratory rate 20, and oxygen saturation was 91%. HEAD, EYES, EARS, NOSE AND THROAT: Normocephalic, atraumatic. NECK: Supple. HEART: Showed normal first and second heart sounds. No gallop, rub or murmur. CHEST: Clear to auscultation. No crepitation or rhonchi. ABDOMEN: Distended, soft, nontender. NEUROLOGIC: He is awake, alert. All his cranial nerves are intact. He moves his upper extremities without difficulty, has functional paraplegia, is mostly bedbound, chair bound. He has a Mu lift. His intake over the last 24 hours was 5355, no output was recorded. LABORATORY DATA: Showed a serum sodium 142, potassium 3.9, chloride 107, bicarbonate 29, anion gap of 6, BUN 4, creatinine 0.7, estimated GFR was 110 mL per minute. His glucose was 95, calcium was 7.8, magnesium was 1.7. His white cell count was 5700, hemoglobin 9, hematocrit 27, MCV 93, and platelet count 255,000. ASSESSMENT: 1. Clostridium difficile colitis, diarrhea has completely subsided. 2. Severe protein calorie malnutrition, serum albumin is only 1.8 g/dL. 3. Functional paraplegia. 4. Type 2 diabetes mellitus. 5. Hypertension. 6. Hyperlipidemia. 7. Chronic renal insufficiency. 8. Coronary artery disease. 9. Anemia. 10. Peripheral vascular disease. 11. History of testicular and colon cancer. 12. Severe hypomagnesemia. Serum magnesium is only 1.5. 13. Multiple psychiatric disorders including dementia, vascular with depression and anxiety disorder, dementia with delusion and impulse control disorder. PLAN: To continue with his current psychotropic medication as per Dr. Miller's recommendation. Continue with oral vancomycin. He was given 2 grams of magnesium sulfate IV and his serum magnesium is up to 1.7. Tomorrow, we will discuss with the heel caser and his and Dr. Miller whether he needs to go upstairs to continue with inpatient psychiatric stabilization and/or hospice care. JENSEN LUCAS MD DR: HEATHER/vijaya JOB#: [id number] / [id number]
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
[2019-01-22 18:14] VITALS: BP 115/69
--- NOTE | 2019-01-22 20:38 | PDOC ---
Exam Note: Coy Note: Please also refer to the separate dictated note~for this date of service dictated separately.~Patient seen individually. Discussed the patient with Nursing staff reviewed the chart.~Reviewed interim history and current functioning. Reviewed vital signs,~Labs/ Radiology~and current medications noted below. Continue current treatment with the changes noted in the dictated addendum note Assessment: Vital Signs/I&O: Vital Signs Date Time Temp Pulse Resp B/P (MAP) Pulse Ox O2 Delivery O2 Flow Rate FiO2 01/22/19 18:14 97.3 86 20 115/69 (84) 94 Room Air I & O 01/21/19 01/21/19 01/22/19 14:59 22:59 06:59 Intake Total 480 ml 50 ml 320 ml Balance 480 ml 50 ml 320 ml Labs: Laboratory Tests Test 01/22/19 07:00 Sodium Level 142 mmol/L (136-145) Potassium Level 3.9 mmol/L (3.5-5.1) Chloride Level 107 mmol/L (98-107) Carbon Dioxide Level 29 mmol/L (21-32) Anion Gap 6 (6-14) Blood Urea Nitrogen 4 mg/dL (8-26) L Creatinine 0.7 mg/dL (0.7-1.3) Estimated GFR (Cockcroft-Gault) 110.9 Glucose Level 95 mg/dL (70-99) Calcium Level 7.8 mg/dL (8.5-10.1) L Magnesium Level 1.7 mg/dL (1.8-2.4) L Current Medications: I have reviewed the current psychotropics carefully including drug interactions. Risk benefit ratio favors no change other than as noted in my dictated progress note. Diagnosis: Problems: (1) Severe protein-calorie malnutrition (2) C. difficile colitis (3) Anxiety disorder (4) Dementia, vascular, with depression (5) Dementia, vascular, with delusions (6) Dementia in Alzheimer's disease with depression (7) Dementia in Alzheimer's disease with delusions (8) Impulse control disorder SERGIO GRISSOM MD Jan 22, 2019 20:37
[2019-01-22] MEDS: ATORVASTATIN CALCIUM 20 MG TABLET PO SCH (21:03)
[2019-01-22] MEDS: traZODone 100 MG TABLET. PO SCH (21:03)
[2019-01-22] MEDS: QUEtiapine 25 MG TABLET. PO SCH (21:03)
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
[2019-01-22 23:09] VITALS: BP 60/88
--- NOTE | 2019-01-22 23:29 | PN ---
DATE: 01/21/2019 PSYCHIATRIC PROGRESS NOTE This late entry of 01/21 covers elements not covered in my initial note. SUBJECTIVE: I met with the patient in the evening. Per nursing report, the patient is a little irritable with care, but otherwise is doing reasonably well. He remains somewhat tired, confused. REVIEW OF SYSTEMS: Positive for tiredness. No CV, , pulmonary, eye system symptoms on review. Diarrhea secondary to C. diff is improved. MENTAL STATUS EXAMINATION: The patient is oriented to himself, at times situation. Insight, judgment, recent and remote memory, attention, concentration, fund of knowledge poor; consistent with his diagnosis mentioned in my initial note. PLAN: No change from initial note. MAN Brian GRISSOM MD DR: KANDY/vijaya JOB#: [id number] / [id number]
[2019-01-22 23:39] VITALS: BP 93/42
--- NOTE | 2019-01-22 23:41 | NUR ---
pt had a blood pressure of 72/39. initiated iv bolus of 500ml of normal saline. after bolus was completed pt bp was 133/66 bmp 78 sp0s 93%. will continue to monitor pt.
--- NOTE | 2019-01-22 23:59 | PN ---
DATE: 01/22/2019 PSYCHIATRIC PROGRESS NOTE This note covers elements not covered in my initial note. SUBJECTIVE: I met with the patient evening of 01/22. The patient has been doing reasonably well per nursing report, but at one point, he made a statement to a nurse that he wanted to "jump out of the window." I addressed this with him at length. He states he gets frustrated lying in bed and he made that statement out of frustration rather than a desire to jump out of the window. We processed this at length and he is able to show inside how to express his frustration appropriately. REVIEW OF SYSTEMS: Ambulation impaired, lying in bed, tired. No CV, , pulmonary, eye system symptoms on review. MENTAL STATUS EXAMINATION: Oriented to himself. Insight, judgment, recent and remote memory, attention, concentration, fund of knowledge poor, consistent with his diagnosis mentioned in my initial note. PLAN: No change from initial note. SERGIO GRISSOM MD DR: KANDY/vijaya JOB#: [id number] / [id number]
[2019-01-23 05:28] VITALS: BP 155/87
[2019-01-23] MEDS: LACTOBACILLUS RHAMNOSUS GG 1 CAPSULE. PO SCH ×2 (07:39→21:05)
[2019-01-23] MEDS: clonazePAM 0.5 MG TABLET PO SCH (07:39)
[2019-01-23] MEDS: ASPIRIN ENTERIC COATED 81 MG TABLET.DR. PO SCH (07:39)
[2019-01-23] MEDS: CITALOPRAM 20 MG TABLET. PO SCH (07:39)
[2019-01-23] MEDS: glipiZIDE 5 MG TABLET PO SCH ×2 (07:39→17:12)
[2019-01-23] MEDS: HYDROCORTISONE 10 MG TABLET PO SCH (07:40)
[2019-01-23] MEDS: MULTIVITAMIN with MINERAL TABLET. PO SCH (07:40)
[2019-01-23] MEDS: LOPERAMIDE 2 MG CAPSULE PO SCH ×2 (07:41→20:58)
[2019-01-23] MEDS: VANCOMYCIN 125 MG/2.5 ML ORAL SOLUTION. PO SCH ×4 (07:47→21:05)
[2019-01-23] MEDS: VITS A & D/LANOLIN TOPICAL OINTMENT 42GM TUBE. TP PRN (07:50)
[2019-01-23] MEDS: MUPIROCIN 2% TOPICAL OINTMENT 22GM TUBE. TP SCH (07:50)
--- NOTE | 2019-01-23 07:52 | NUR ---
NURSING NOTE PER WOUND CARE NOTES, A&D OINTMENT IS TO BE USED. A&D OINTMENT USED THIS AM AND BACTROBAN NON-ADMINISTERED.
[2019-01-23 09:46] VITALS: BP 128/64
--- NOTE | 2019-01-23 10:00 | NUR ---
SW returned call to pt , Lisa, to discuss the request to have a second opinion through a hospice company completed. The team strongly urges pt to be on hospice care as his labs show that he is caloric-protein malnutrition and due to pt care level needs, he would be most appropriate. Pt was not aware that there are actual Hospice companies and SW explained options and discussed the factor that these agencies work together for the best care of the pt. Pt agreed and reports that she will have that agency return to complete the 2nd assessment. Pt and SW also discussed further placement options. SW mentioned [facility] as being a great option for placement, as [facility] could not accept pt as he is in isolation for C-diff and does not have a private room. Pt will look into [facility] and SW will plan to send that referral to see if pt could be assessed and moved DOR[facility].
[2019-01-23] MEDS: IV NORMAL SALINE 1,000ML 1,000 ML IV SCH (13:30)
--- NOTE | 2019-01-23 13:40 | NUR ---
LIGIA met with Nate at [facility] who came and assessed pt for placement. Nursing reports that pt is on IV Vancomyacin; however, once he is discharged he will be put on PO. Pt does not have physical aggression; but does tend to grope female staff. After the evaluation, [facility] will take pt and will work with pt on getting paperwork and setting up transport. LIGIA will complete the POC and have the hospitalist sign the form for discharge tomorrow. Addendum: 01/24/19 at 1027 by ALLY [facility] called later that day to report that they cannot take pt tomorrow but on Wednesday to aid in moving pt belongings in and completion of paperwork.
[2019-01-23 14:44] VITALS: BP 121/62
[2019-01-23 17:54] VITALS: BP 109/67
[2019-01-23 19:35] VITALS: BP 111/61
--- NOTE | 2019-01-23 20:29 | PDOC ---
Exam Note: Coy Note: Please also refer to the separate dictated note~for this date of service dictated separately.~Patient seen individually. Discussed the patient with Nursing staff reviewed the chart.~Reviewed interim history and current functioning. Reviewed vital signs,~Labs/ Radiology~and current medications noted below. Continue current treatment with the changes noted in the dictated addendum note Assessment: Vital Signs/I&O: Vital Signs Date Time Temp Pulse Resp B/P (MAP) Pulse Ox O2 Delivery O2 Flow Rate FiO2 01/23/19 17:54 97.8 85 20 109/67 (81) 94 Room Air 01/22/19 23:09 88.0 I & O 01/22/19 01/22/19 01/23/19 15:00 23:00 07:00 Intake Total 300 ml 530 ml 3645 ml Balance 300 ml 530 ml 3645 ml Current Medications: I have reviewed the current psychotropics carefully including drug interactions. Risk benefit ratio favors no change other than as noted in my dictated progress note. Diagnosis: Problems: (1) Severe protein-calorie malnutrition (2) C. difficile colitis (3) Anxiety disorder (4) Dementia, vascular, with depression (5) Dementia, vascular, with delusions (6) Dementia in Alzheimer's disease with depression (7) Dementia in Alzheimer's disease with delusions (8) Impulse control disorder SERGIO GRISSOM MD Jan 23, 2019 20:29
[2019-01-23] MEDS: ATORVASTATIN CALCIUM 20 MG TABLET PO SCH (21:05)
[2019-01-23] MEDS: QUEtiapine 25 MG TABLET. PO SCH (21:05)
[2019-01-23] MEDS: traZODone 100 MG TABLET. PO SCH (21:05)
[2019-01-23 23:10] VITALS: BP 115/68
[2019-01-24 05:55] VITALS: BP 117/58
[2019-01-24] MEDS: glipiZIDE 5 MG TABLET PO SCH ×2 (08:05→17:32)
[2019-01-24] MEDS: VANCOMYCIN 125 MG/2.5 ML ORAL SOLUTION. PO SCH ×4 (08:05→21:00)
[2019-01-24] MEDS: MULTIVITAMIN with MINERAL TABLET. PO SCH (08:06)
[2019-01-24] MEDS: LACTOBACILLUS RHAMNOSUS GG 1 CAPSULE. PO SCH ×2 (08:06→20:57)
[2019-01-24] MEDS: LOPERAMIDE 2 MG CAPSULE PO SCH ×2 (08:06→20:45)
[2019-01-24] MEDS: clonazePAM 0.5 MG TABLET PO SCH (08:06)
[2019-01-24] MEDS: CITALOPRAM 20 MG TABLET. PO SCH (08:06)
[2019-01-24] MEDS: ASPIRIN ENTERIC COATED 81 MG TABLET.DR. PO SCH (08:06)
[2019-01-24] MEDS: HYDROCORTISONE 10 MG TABLET PO SCH (08:07)
[2019-01-24] MEDS: MUPIROCIN 2% TOPICAL OINTMENT 22GM TUBE. TP SCH (08:07)
--- NOTE | 2019-01-24 12:08 | NUR ---
Pt is dry.. brief applied for protection. A & D applied to buttocks and groin. Pt denies any pain at this time. Pt receiving oral Vancomycin for C. Diff. Consults to Paul and Case Management. Pt to be discharged to [facility] tomorrow, Wednesday01/25/19. Bed in lowest position, Bootie applied to R foot, L foot elevated w/ pillow. Turn Q2 hours. Pt currently on L side. Will continue to monitor and assess.
[2019-01-24 15:42] VITALS: BP 120/73
--- NOTE | 2019-01-24 18:35 | PN ---
DATE: 01/24/2019 SUBJECTIVE: The patient is resting, slightly propped up in bed, no apparent distress. On questioning him, he denied any complaint. Somehow, he seemed to be more compliant and cooperative and also more respective and less combative than before. PHYSICAL EXAMINATION: GENERAL: When I examined him today, he looked pale, cachectic, but no jaundice, cyanosis or thyromegaly. No jugular venous distention. No limb edema. VITAL SIGNS: Heart rate was 79, blood pressure was 117/58, temperature was 97.3, respiratory rate was 20, and oxygen saturation was 92% on room air. HEAD, EYES, EARS, NOSE AND THROAT: Showed normocephalic, atraumatic. NECK: Supple. HEART: Showed normal first and second heart sounds. No gallop or murmur. CHEST: Clear to auscultation. No crepitation or rhonchi. ABDOMEN: Scaphoid, soft, nontender. NEUROLOGIC: He was awake, alert. All his cranial nerves are intact. He moves all extremities to much great extent. Lower extremities, he has functional paraplegia, is mostly bedbound, chair bound. He has a Mu lift. His intake over the last 22 hours was 4475, no output was recorded. LABORATORY DATA: As of yesterday showed a serum sodium 142, potassium 3.9, chloride 107, bicarbonate 29, anion gap of 6, BUN 4, creatinine 0.7, estimated GFR was 110 mL per minute, his glucose was 95, calcium was 7.8, and magnesium was 1.7. White cell count was 5700, hemoglobin 8.7, hematocrit 27, MCV 93, and platelet count 255,000. ASSESSMENT: 1. Clostridium difficile colitis. Diarrhea has completely subsided. 2. Severe protein calorie malnutrition, serum albumin is only 1.8 g/dL. 3. Functional paraplegia. 4. Type 2 diabetes mellitus. 5. Hypertension. 6. Hyperlipidemia. 7. Chronic renal insufficiency. 8. Coronary artery disease. 9. Anemia of chronic disease. 10. Peripheral vascular disease. 11. History of testicular and colon cancer. 12. Severe hypomagnesemia, resolved. His serum magnesium is up to 1.7. 13. Multiple psychiatric disorders including dementia, vascular, depression, anxiety disorder, dementia with delusion impulse control. PLAN: To continue with psychotropic medication as recommended by Dr. Miller. Continue with vancomycin orally. We will repeat his labs tomorrow and apparently he was accepted to go on hospice at [facility] tomorrow. JENSEN LUCAS MD DR: HEATHER/vijaya JOB#: [id number] / [id number]
[2019-01-24 19:25] VITALS: BP 94/63
--- NOTE | 2019-01-24 20:01 | PDOC ---
Exam Note: Coy Note: Please also refer to the separate dictated note~for this date of service dictated separately.~Patient seen individually. Discussed the patient with Nursing staff reviewed the chart.~Reviewed interim history and current functioning. Reviewed vital signs,~Labs/ Radiology~and current medications noted below. Continue current treatment with the changes noted in the dictated addendum note Assessment: Vital Signs/I&O: Vital Signs Date Time Temp Pulse Resp B/P (MAP) Pulse Ox O2 Delivery O2 Flow Rate FiO2 01/24/19 15:42 98.2 85 20 120/73 (89) 94 Room Air 01/22/19 23:09 88.0 I & O 01/23/19 01/23/19 01/24/19 15:00 23:00 07:00 Intake Total 760 ml 480 ml 0 ml Balance 760 ml 480 ml 0 ml Current Medications: I have reviewed the current psychotropics carefully including drug interactions. Risk benefit ratio favors no change other than as noted in my dictated progress note. Diagnosis: Problems: (1) Severe protein-calorie malnutrition (2) C. difficile colitis (3) Anxiety disorder (4) Dementia, vascular, with depression (5) Dementia, vascular, with delusions (6) Dementia in Alzheimer's disease with depression (7) Dementia in Alzheimer's disease with delusions (8) Impulse control disorder SERGIO GRISSOM MD Jan 24, 2019 20:01
--- NOTE | 2019-01-24 20:32 | PN ---
DATE: 01/23/2019 PSYCHIATRIC PROGRESS NOTE This late entry of 01/23/2019 covers the elements not covered in my initial note. SUBJECTIVE: I met with the patient in the evening. Per nursing report, plan is for him to transition to detention on 01/25/2019. In the meantime, he has not made any further threats of jumping out of the window. We discussed individually his frustration with his health condition. He was able to address this more reasonably. REVIEW OF SYSTEMS: Positive for impaired ambulation. No CV, , pulmonary, eye system symptoms on review. MENTAL STATUS EXAM: Oriented to himself. Insight, judgment, recent and remote memory, attention, concentration, fund of knowledge poor, consistent with his diagnosis mentioned in my initial note. PLAN: No change from initial note. MAN Brian GRISSOM MD DR: KANDY/vijaya JOB#: [id number] / [id number]
[2019-01-24] MEDS: traZODone 100 MG TABLET. PO SCH (20:56)
[2019-01-24] MEDS: QUEtiapine 25 MG TABLET. PO SCH (20:57)
[2019-01-24] MEDS: ATORVASTATIN CALCIUM 20 MG TABLET PO SCH (20:57)
[2019-01-25 00:58] VITALS: BP 109/69
[2019-01-25 06:23] VITALS: BP 120/62
[2019-01-25] MEDS: VANCOMYCIN 125 MG/2.5 ML ORAL SOLUTION. PO SCH ×2 (07:57→12:43)
[2019-01-25] MEDS: ASPIRIN ENTERIC COATED 81 MG TABLET.DR. PO SCH (07:58)
[2019-01-25] MEDS: LACTOBACILLUS RHAMNOSUS GG 1 CAPSULE. PO SCH (07:58)
[2019-01-25] MEDS: MULTIVITAMIN with MINERAL TABLET. PO SCH (07:58)
[2019-01-25] MEDS: CITALOPRAM 20 MG TABLET. PO SCH (07:58)
[2019-01-25] MEDS: clonazePAM 0.5 MG TABLET PO SCH (07:58)
[2019-01-25] MEDS: glipiZIDE 5 MG TABLET PO SCH (07:58)
[2019-01-25] MEDS: HYDROCORTISONE 10 MG TABLET PO SCH (08:00)
[2019-01-25] MEDS: LOPERAMIDE 2 MG CAPSULE PO SCH (08:05)
[2019-01-25] MEDS: VITS A & D/LANOLIN TOPICAL OINTMENT 42GM TUBE. TP PRN (08:05)
[2019-01-25] MEDS: MUPIROCIN 2% TOPICAL OINTMENT 22GM TUBE. TP SCH (08:06)
--- NOTE | 2019-01-25 09:28 | NUR ---
Wound Care Wound care follow up for multiple wounds. Pt has abrasion to right upper back that is healing with small slough covered wound remaining. Pt also has new abrasion to right hip that is slough covered, pic in chart. Pt has stage III PU to coccyx with surrounding IAD resolved. Dressed all wounds with skin prep and hydrocolloid. No other wounds noted. WC will continue to follow for possible changes.
--- NOTE | 2019-01-25 09:37 | NUR ---
NURSING NOTE PT WAS ALERT TO SELF ONLY THIS AM. PT WAS COMPLIANT WITH CRUSHED MEDS IN VAN. PUDDING THIS AM. PT WOUNDS DRESSED BY WOUND CARE THIS AM, ALL WOUNDS WITH SKIN PREP AND HYDROCOLLOID. PT GOT A BATH ON 01/24/19. PT HAD STOOL 01/24/19 FORMED/SOFT. PT WAS TEARFUL THIS AM D/T DISCHARGE PLAN OF [facility] STATING THAT "THAT PLACE IS FOR RETARDS". ENSURED PATIENT THAT HE IS GOING BE TAKEN CARE OF AND THAT HE MET THE LADIES WEDNESDAY AND THEY WERE REALLY NICE. PT AGREED. PT ATE 50% OF HIS MEAL THIS AM WITH SET UP ASSIST ONLY. PT HAS BEEN PLEASANT OTHERWISE AND SCHEDULED TO DISCHARGE TODAY AT 1400 TO [facility]. WILL CONTINUE TO MONITOR. WELLINGTON ALTAMIRANO.
--- NOTE | 2019-01-25 10:43 | PN ---
DATE: 01/24/2019 PSYCHIATRIC PROGRESS NOTE This late entry, 01/24/2019, covers the elements not covered in my initial note. SUBJECTIVE: I met with the patient in the evening in bed [address], [address]. Per nursing report, the patient has not made any more threats of jumping out of the window or suicidal thoughts. He has been more appropriate, remains somewhat confused. REVIEW OF SYSTEMS: Positive for tiredness. No CV, , pulmonary, or eye system symptoms on review. MENTAL STATUS EXAM: Oriented to himself and situation. Speech has some latency, pleasant, and cooperative. Abstraction fair, computation impaired, and language function intact. Memory is impaired. Mood and affect is improved. LABORATORY DATA: Reviewed. IMPRESSION: Unchanged from initial note. PLAN: No change from initial note and I have been made aware plan is to transition to correction, 01/25/2019. MAN Brian GRISSOM MD DR: KANDY/vijaya JOB#: [id number] / [id number]
--- NOTE | 2019-01-25 14:32 | NUR ---
NURSING NOTE DISCHARGE PT DISCHARGED TO [facility] AT 1410 [facility] ACCOMPANIED BY EMS PERSONNEL. REPORT CALLED TO PAUL. COPY OF CHART SENT WITH EMS PERSONNEL. NO COMPLICATIONS. WELLINGTON ALTAMIRANO.
--- NOTE | 2019-01-25 15:15 | DS ---
DATE OF DISCHARGE: 01/25/2019 HOSPITAL COURSE: The patient is a 73-year-old male patient who was initially brought to the [facility] for inpatient psychiatric stabilization. While at the [facility], he developed diarrhea and his stool came back positive and therefore he was brought down to the [address] [place] [address] to continue to be in isolation and continue with oral vancomycin. He did actually very well. His diarrhea has largely subsided. However, the patient was evaluated and it was felt that he is appropriate to go on hospice, and therefore, the patient was discharged to [facility] to go on hospice care. OBJECTIVE: GENERAL: When I saw him this morning, he looked well and was clearly in no apparent respiratory distress, pale, but no jaundice, cyanosis or thyromegaly. No jugular venous distension. No lower limb edema. VITAL SIGNS: Her heart rate was 80, blood pressure was 120/62, temperature was 98.6, respiratory rate was 20, and oxygen saturation was 94% on room air. HEAD, EYES, EARS, NOSE AND THROAT: Showed normocephalic, atraumatic. NECK: Supple. HEART: Showed normal first and second heart sounds. No gallop or murmur. CHEST: Clear to auscultation. No crepitation or rhonchi. ABDOMEN: Scaphoid, soft, nontender. NEUROLOGIC: He was awake, alert. All his cranial nerves are intact. He moves upper extremities without difficulty, has functional paraplegia. He is mostly bedbound, chair bound. 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 LABORATORY DATA: His lab work this morning showed a white cell count 5700, hemoglobin 9, hematocrit 27, MCV 93, and platelet count 255,000. His chemistry showed a serum sodium 142, potassium 3.9, chloride 107, bicarbonate 29, anion gap of 6, BUN 4, creatinine 0.7, estimated GFR was 110 mL per minute. Her glucose was 95, calcium was 7.8, magnesium was 1.7. His total protein was 4.6, albumin was 1.5. DISCHARGE MEDICATIONS: He was discharged to continue on acetaminophen 2 tablets q.6 hourly, aspirin 81 mg once a day, atorvastatin 60 mg at bedtime, citalopram hydrobromide for Celexa 40 mg at bedtime, clonazepam 0.5 mg daily, glipizide 5 mg twice a day, hydrocortisone for Cortef 15 mg once a day, hydromorphone 2 mg every 4 hours, lactobacillus, rhamnosus 1 capsule twice a day, loperamide 2 mg twice a day, Mylanta 15 mL every 6 hours, magnesium hydroxide for milk of magnesia 30 mL p.o. daily p.r.n. for constipation, metformin 500 mg twice a day, methyl salicylate 4 times a day, Bactroban applied topically twice a day, multivitamin 1 tablet once a day, quetiapine fumarate 25 mg every 6 hours, quetiapine fumarate 25 mg at bedtime scheduled, trazodone 100 mg at bedtime. He was also discharged to continue on vancomycin 125 mg 4 times a day to continue a total of 2 weeks. FINAL DISCHARGE DIAGNOSES: 1. Clostridium difficile colitis. Diarrhea has completely subsided. 2. Severe protein-calorie malnutrition with serum albumin is only 1.8 g/dL. 3. Functional paraplegia. 4. Type 2 diabetes mellitus. 5. Hypertension. 6. Hyperlipidemia. 7. Chronic renal insufficiency. 8. Coronary artery disease. 9. Anemia of chronic disease. 10. Peripheral vascular disease. 11. History of testicular and colon cancer. 12. Severe hypomagnesemia, resolved. 13. Multiple psychiatric disorders including dementia, vascular, depression, anxiety disorder as well as dementia with delusion and impulse control. JENSEN LUCAS MD DR: HEATHER/vijaya JOB#: [id number] / [id number]
== END 2019-01-25 14:10 | DRG 371 ==
LOC: 1 SOUTH 15:55
PROVIDERS: ADMIT Internal Medicine; ATTEND Internal Medicine
DX: A04.71 Enterocolitis due to Clostridium difficile, recurrent (principal); E43 Unspecified severe protein-calorie malnutrition; F32.3 Major depressive disorder, single episode, severe with psychotic features; N18.9 Chronic kidney disease, unspecified; D63.8 Anemia in other chronic diseases classified elsewhere; E11.22 Type 2 diabetes mellitus with diabetic chronic kidney disease; E11.51 Type 2 diabetes mellitus with diabetic peripheral angiopathy without gangrene; E78.5 Hyperlipidemia, unspecified; E83.42 Hypomagnesemia; F01.50 Vascular dementia, unspecified severity, without behavioral disturbance, psychotic disturbance, mood disturbance, and anxiety; F02.80 Dementia in other diseases classified elsewhere, unspecified severity, without behavioral disturbance, psychotic disturbance, mood disturbance, and anxiety; F32.9 Major depressive disorder, single episode, unspecified; F41.9 Anxiety disorder, unspecified; F44.4 Conversion disorder with motor symptom or deficit; G30.9 Alzheimer's disease, unspecified; I12.9 Hypertensive chronic kidney disease with stage 1 through stage 4 chronic kidney disease, or unspecified chronic kidney disease; I25.10 Atherosclerotic heart disease of native coronary artery without angina pectoris; Z85.038 Personal history of other malignant neoplasm of large intestine; Z85.47 Personal history of malignant neoplasm of testis; Z95.1 Presence of aortocoronary bypass graft; Z98.84 Bariatric surgery status; Z88.8 Allergy status to other drugs, medicaments and biological substances; Z68.24 Body mass index [BMI] 24.0-24.9, adult
CPT/HCPCS: 36415; 80048; 80053; 83735; 85025; 85027; J3475; J7030